=== PATIENT | female | born 1985 | race Caucasian/White ===

== ENCOUNTER 2024-02-03 15:02 | Inpatient (IN) | payer BC, SELFPAY ==
[2024-02-03 11:30] VITALS: BP 137/81
[2024-02-03 11:44] VITALS: BMI 32.1
[2024-02-03 11:48] LABS: % Basophils 0.6 % (0-2); % Eosinophils 1.3 % (0-6); % Lymphocytes 15.8 % (20.5-51.1); % Neutrophils 70.3 % (42.2-75.2); Absolute Basophils 0.1 10^3/uL (0-0.2); Absolute Eosinophils 0.2 10^3/uL (0-0.7); Absolute Immature Granulocytes 0.1 10^3/uL (0-0.05); Absolute Lymphocytes 1.8 10^3/uL (1.2-3.4); Absolute Monocytes 1.3 10^3/uL (0.1-0.6); Absolute Neutrophils 8.1 10^3/uL (1.4-6.5); Hematocrit 30.1 % (37.0-47.0); Hemoglobin 10.9 g/dL (12.0-16.0); Mean Corp Hgb Conc. 36.2 g/dL (33.0-37.0); Mean Corpuscular Hgb 38.5 pg (27.0-31.0); Mean Corpuscular Volume 106.4 fL (81.0-99.0); Mean Platelet Volume 10.8 fL (7.4-10.4); Nucleated Red Blood Cells % 0 %; Platelet Count 255 10^3/uL (130-400); Red Blood Cell Count 2.83 10^6/uL (4.20-5.40); Red Cell Dist. Width 17.6 % (11.5-14.5); White Blood Cell Count 11.6 10^3/uL (4.8-10.8)
[2024-02-03 12:16] LABS: ALT (SGPT) 42 U/L (0-35); AST (SGOT) 296 U/L (14-36); Albumin 3.9 g/dl (3.5-5.0); Alkaline Phosphatase 164 U/L (38-126); Blood Urea Nitrogen 4 mg/dl (7-17); Calcium 9.4 mg/dl (8.4-10.2); Carbon Dioxide 24 mmol/L (22-30); Chloride 95 mmol/L (98-107); Estimated Creatinine Clearance > 125 ml/min; Glucose 116 mg/dl (70-99); Lipase 75 U/L (23-300); Potassium 3.5 mmol/L (3.5-5.1); Sodium 134 mmol/L (135-145); Total Bilirubin 23.3 mg/dl (0.2-1.3); eGFR > 60.00
--- NOTE | 2024-02-03 12:58 | ED.GENMED ---
History of Present Illness
General
Chief Complaint: Skin Problem
Source: patient and spouse
Time Seen by Provider: 02/03/24 12:19
History of Present Illness
History of Present Illness:
38-year-old female with past medical history of anxiety presenting to the emergency department for evaluation of jaundice that spouse noted mildly about 1 month ago but over the last week has gotten progressively worse. Patient was attributing this
to being started on doxycycline for a lower respiratory infection that urgent care gave her about 1 week ago but this was causing GI upset so patient stopped the medication and states the GI symptoms resolved but the jaundice has only gotten worse.
She denies any abdominal pain, fevers, current nausea or vomiting, history of similar. Patient notes that she drinks at least 5-6 alcoholic beverages daily although with her recent illness she has not really drank over the last week. Occasionally
will smoke marijuana but otherwise denies any other illicit substances/IV drug abuse. No known sick contacts or recent travel. Family history was unremarkable for any GI or pancreatic cancers.
Past History
Past History
ED Past Medical History: Psychiatric
ED Past Surgical History: None
Social History
Tobacco: Non-smoker
Alcohol: Daily
Drug: Marijuana
Personal: Single
Living: with family
Employment: Employed
Review of Systems
Review of Systems
All Other Systems: ROS reviewed and negative except as documented in HPI and ROS
Phy Exam
Physical Exam
Physical Exam:
GENERAL: Alert , in no apparent distress
EYE: Icteric sclera
HEAD: NCAT
ENT: o/p clr, mmm.
CARDIAC: Regular rate and rhythm .
LUNGS: Clear breath sounds bilaterally, no acute respiratory distress, no wheezes/rales/rhonchi
ABDOMEN: Soft but distended, without focal tenderness, no r/g, no cvat, no right upper quadrant or periumbilical tenderness
NEUROLOGICAL: Alert and oriented
SKIN: Warm and dry, skin intact. Jaundiced with most of the jaundice pronounced along the face and sclera however also noted on her abdomen and chest
MUSCULOSKELETAL: No edema, well perfused.
PSYCH: Normal and appropriate interaction.
Scores
Heart Failure Risk
Heart Failure Risk Score: Not Applicable
Heart Score for Chest Pain Patients
STEMI patient?: Not applicable
Withdrawal Assessment of Alcohol
Withdrawal Assessment Completed?: Not applicable
Course
Orders/Labs/Results
Orders:
Orders
02/03/24 11:40
CMP [Comprehensive Metabolic Panel] Urgent
Complete Blood Count/With Diff Urgent
Direct Bilirubin Urgent
Comment: ADD ON
Hepatitis A Antibody, Total Urgent
Comment: ADD ON
Hepatitis B Core Ab, Total Urgent
Comment: ADD ON
Hepatitis B Surface Antibody Urgent
Comment: ADD ON
Hepatitis B Surface Antigen Urgent
Comment: ADD ON
Hepatitis C Antibody Urgent
Comment: ADD ON
Lipase Urgent
02/03/24 12:19
CT Abd/pelvis W Iv Cont Urgent
Comment:
Reason For Exam: jaundice, elevated LFT
02/03/24 12:20
Test Result ONCE
02/03/24 12:56
Alcohol Urgent
HCG, Serum Qualitative Screen Urgent
Monotest Urgent
Tylenol [Acetaminophen] Urgent
02/03/24 12:57
Add On- LAB Urgent
Tests Added?: hepatitis panel (hep A AB, Hep B AB/AG, Hep B core AB, Hep C AB)
02/03/24 14:29
Add On- LAB Routine
Tests Added?: direct bilirubin
Chest [CR Chest - 2 Views ] Routine
Comment:
Reason For Exam: eval for pna
02/03/24 14:32
Add On- LAB Urgent
Tests Added?: PT/INR/PTT
02/03/24 14:44
Blood Culture Q30M
STAN Source: Blood/Venous
Specimen Description:
Blood Culture Q30M
STAN Source: Blood/Venous
Specimen Description:
02/03/24 14:45
Hepatitis A IgM Antibody Routine
Hepatitis B Core Ab, IgM Routine
PT/INR [Prothrombin Time] Routine
PTT Routine
Comment: ADD ON
Urinalysis Routine
Date Specimen was Collected: 02/03/24
Time Specimen was Collected: 14:31
Urine Microscopic Routine
Date Specimen was Collected: 02/03/24
Time Specimen was Collected: 14:31
Urine Culture Routine
STAN Source: Urine
Specimen Description:
Obtained by: Bladder
Date Specimen was Collected: 02/03/24
Time Specimen was Collected: 14:31
02/03/24 14:48
Admit/Transfer Patient As Directed
Co-Sign Provider:
Level of Care: Inpatient admission
Assign to:: Medical/Surgical
Physician / Group: zaria
Diagnosis: alcoholic hepatitis
Reason for Hospitalization: alcoholic hepatitis
Expected length of stay greater than two midnights?: Yes
ELOS- Estimated Length of Stay in days: 2
I certify the patient meets the requirements for IP care: Yes
Code Status As Directed
Resuscitation Status: Full Code
PRN Pain Medication Management As Directed
May give lesser potent ordered pain med per pt: Yes
preference::
Protocol:: Medication orders for pain may be administered in a
manner that supports deferring to patient preference
when the pt is:
- Requesting an ordered lesser potent pain medication.
Least to most potent pain medications are defined
as: acetaminophen < NSAID < tramadol < opioids
(morphine, oxycodone, hydromorphone).
- Requesting a lesser dose of the same medication IF
ORDERED.
- Requesting a less intrusive route of administration
if both routes are prescribed by the provider (PO <
IV).
Abnormal Lab Results
02/03/24 02/03/24 02/03/24
11:40 12:56 14:45
WBC 11.6 H 10^3/uL
(4.8-10.8)
RBC 2.83 L 10^6/uL
(4.20-5.40)
Hgb 10.9 L g/dL
(12.0-16.0)
Hct 30.1 L %
(37.0-47.0)
MCV 106.4 H fL
(81.0-99.0)
MCH 38.5 H pg
(27.0-31.0)
RDW 17.6 H %
(11.5-14.5)
MPV 10.8 H fL
(7.4-10.4)
Abs Immat Gran (auto) 0.1 H 10^3/uL
(0-0.05)
Absolute Neuts (auto) 8.1 H 10^3/uL
(1.4-6.5)
Absolute Monos (auto) 1.3 H 10^3/uL
(0.1-0.6)
Immature Gran % 1.0 H %
(0-0.5)
Lymphocytes % 15.8 L %
(20.5-51.1)
Monocytes % 11.0 H %
(1.7-9.3)
PT 24.0 H Sec
(11.4-14.6)
APTT 42.4 H Sec
(23.4-35.0)
Sodium 134 L mmol/L
(135-145)
Chloride 95 L mmol/L
(98-107)
BUN 4 L mg/dl
(7-17)
Creatinine 0.5 L mg/dL
(0.6-1.0)
Glucose 116 H mg/dl
(70-99)
Total Bilirubin 23.3 H* mg/dl
(0.2-1.3)
Direct Bilirubin 18.9 H mg/dl
(0.0-0.4)
AST 296 H U/L
(14-36)
ALT 42 H U/L
(0-35)
Alkaline Phosphatase 164 H U/L
(38-126)
Urine Bilirubin 3+ A
(Negative)
Urine Urobilinogen 3+ A
(Neg - 1+)
Ur Leukocyte Esterase Trace A
(Negative)
Acetaminophen < 10 L ug/ml
(10-30)
02/03/24 11:40
02/03/24 11:40
Vital Signs
Initial and Last Documented VS:
Initial Vital Signs
Temp Pulse Resp BP Pulse Ox
98.1 F 104 16 137/81 98
02/03/24 11:30 02/03/24 11:30 02/03/24 11:30 02/03/24 11:30 02/03/24 11:30
Last Documented Vital Signs
Temp Pulse Resp BP Pulse Ox
98.1 F 94 16 111/67 95
02/03/24 11:30 02/03/24 15:00 02/03/24 15:00 02/03/24 15:00 02/03/24 14:45
MDM/Problems Addressed
Differential Diagnosis Includes:
Cirrhotic liver secondary to alcohol abuse, GI mass, less concern for cholecystitis, possibility for common bile duct stone, infectious etiology/hepatitis/mono
MDM/Problems Addressed:
38-year-old female presenting to the ER for evaluation of jaundice, significant other noticed this about 1 month ago but progressively worse over the last week. Patient with recent lower respiratory illness but had already been experiencing the
jaundice prior to this. Doubt medication reaction. Patient is a heavy drinker drinking at least 5-6 hard liquor beverages daily. Labs ordered from triage. CT of the abdomen and pelvis ordered as well as additional labs including Tylenol level,
alcohol level, monotest, beta hCG, hepatitis panel.
*Radiology
Radiology exam reviewed: radiology read reviewed
*Pulse Oximetry
Patient hypoxic: no
*Critical Care Note
Total Time (30-74mins, 75-104mins- exclusive of procedures): Not Applicable
Patient Management
Discussion with other providers: Hospitalist and [employer]
Escalation/DeEscalation of care consider admission/obs:
Patient CT findings noted for moderate to large volume ascites. Otherwise I have minimal suspicion for any gallbladder pathology given patient is here without any pain. Acute alcoholic hepatitis suspect to be the most likely diagnosis. Given her
significant lab abnormalities will admit for further evaluation. GI notified and will consult. Hospitalist team accepts for continued evaluation and treatment.
ED Attending Note
-
Portions of this chart may have been created with voice recognition software.� Occasional wrong word or��sound alike� substitutions may have occurred due to the inherent limitations of voice recognition software.
Discharge Plan
Departure
Patient Disposition: Admit
Date of Disposition: 02/03/24
Time of Disposition: 14:33
Presentation/result/management discussed w/ accepting MD/DO: Hospitalist
Discharge Problem:
Acute alcoholic hepatitis
Interventions
Interventions:
*Risk Screen - Suicide Last Done: 02/03/24 11:44
*General Assessment Last Done: 02/03/24 11:41
*Neglect/Abuse Screening Last Done: 02/03/24 11:44
ED- Fall Risk Assessment Last Done: 02/03/24 11:43
*ED COVID-19 Vaccine History Last Done: 02/03/24 11:41
ED-Skin Assessment Last Done: 02/03/24 11:44
[2024-02-03 13:31] LABS: HCG, Serum Qualitative Screen Negative
[2024-02-03 13:44] VITALS: BP 123/74
[2024-02-03 13:45] LABS: Acetaminophen < 10 ug/ml (10-30); Alcohol None Detected
[2024-02-03 14:10] VITALS: BP 118/71
[2024-02-03 14:28] LABS: Monotest Negative (Negative)
[2024-02-03 15:00] VITALS: BP 111/67
--- NOTE | 2024-02-03 15:02 | HPS.HSE ---
Family Physician
-
Family Physician: Patrick Meza
Chief Complaint
-
painless jaundice
History of Present Illness
38-year-old female past medical history of IBS/GERD, hypothyroidism, anxiety presenting for jaundice status post noted 1 month ago but has gotten worse over the past week.
A week ago patient developed cough with muscle aching and chills. She went to urgent care and was prescribed doxycycline for lower respiratory tract infection. She had vomiting as well before starting the antibiotic which she thought was from a
stomach bug that was going around her office. She took this for a few days and then developed worsening nausea and vomiting so stopped taking the doxycycline. Nausea vomiting resolved afterwards. The jaundice got worse while patient was taking
doxycycline over the past few days.
She continues to have cough. Denies shortness of breath.
She denies any abdominal pain. No diarrhea.
She drinks 5-6 alcoholic beverages daily but she has not had any alcohol to drink over the past 2 weeks. She has been drinking this much since college. She does smoke marijuana symptoms. Denies smoking or any other drugs.
She denies any recent travel history.
No family history of GI or pancreatic problems.
She used to take milk thistle.
Medical History
Past Medical History
Past Medical History: Reports Other ( IBS/GERD, hypothyroidism, anxiety)
Past Surgical History: Reports Other (LEAP procedure )
Social History
Tobacco: Non-smoker
Alcohol: Daily
Drug: Marijuana
Family History
Family History: Not pertinent
Allergies / Home Medications
Allergies reflects when Allergies were last updated in [facility].
Home Medications with original date entered in [facility]
Allergy/Medication List:
Allergies
Allergy/AdvReac Type Severity Reaction Status Date / Time
amoxicillin Allergy Unknown Verified 02/03/24 11:29
doxycycline Allergy Unknown Verified 02/03/24 11:29
Penicillins Allergy Unknown Verified 02/03/24 11:29
Home Medications
calcium carbonate (Tums) 200 mg PO DAILYPRN PRN gerd 02/03/24
clonazepam 1 mg tablet 1 mg PO BID 02/03/24
levothyroxine 50 mcg tablet 50 mcg PO DAILY 02/03/24
Review of Systems
-
History Source: Patient
A 12 point ROS was completed and negative except as noted: Yes
Constitutional: Reports No Symptoms
EENT: Reports No Symptoms
Respiratory: Reports See HPI
Cardiac: Reports No Symptoms
Abdomen/GI: Reports See HPI
: Reports No Symptoms
Musculoskeletal: Reports No Symptoms
Skin: Reports No Symptoms
Neurological: Reports No Symptoms
Endocrine: Reports No Symptoms
Hematologic/Lymphatic: Reports No Symptoms
Psych: Reports No Symptoms
Physical Exam
Vital Signs
Vital Signs
Temp Pulse Resp BP Pulse Ox
98.1 F 102 19 123/74 96
02/03/24 11:30 02/03/24 14:10 02/03/24 14:10 02/03/24 13:44 02/03/24 14:10
Physical Exam
General: Well Developed, Well Nourished and No Apparent Distress
HEENT: NormoCephalic, Moist mucous membranes, Atraumatic and Other (jaundice)
Respiratory: Clear
Cardiac: S1/S2 and Regular Rhythm; No Murmur or Rub
GI: Soft, Non Tender, Non Distended and Normal Bowel Sounds; No Organomegaly
Rectal: Deferred by Provider
Musculoskeletal: No Clubbing, No Cyanosis and No Edema
Skin: No Rash
Neuro: Nonfocal/grossly intact
Laboratory Results
-
02/03/24 11:40
02/03/24 11:40
Laboratory Results
Total Bilirubin 23.3 mg/dl (0.2-1.3) H* 02/03/24 11:40
AST 296 U/L (14-36) H 02/03/24 11:40
ALT 42 U/L (0-35) H 02/03/24 11:40
Alkaline Phosphatase 164 U/L (38-126) H 02/03/24 11:40
Lipase Cancelled 02/03/24 12:19
Data Reviewed
-
Lab Data: Labs Reviewed by me
Old Records: Reviewed
Impression/Plan
-
IMPRESSION:
PLAN:
# Painless jaundice/transaminitis likely secondary to acute alcoholic hepatitis with ascites
-CT abdomen pelvis shows enlarged minimally diffusely heterogeneous liver, cannot exclude minimal gallbladder density such as sludge/tiny stone/mild gallbladder wall thickening, no biliary tract dilatation, small volume ascites
-Blood cultures pending
-Urinalysis pending
-Hepatitis serologies pending
-PT/INR pending
-Likely will require steroids
-IR consulted for paracentesis
-Counseled on alcohol cessation
-GI consulted
# History of alcohol use disorder
-She did not drink alcohol in 1 to 2 weeks
# Recent upper respiratory infection likely acute bronchitis
-continue to have cough
-Chest x-ray pending
-Only completed few days of doxycycline
IBS/GERD
Anxiety
-Continue clonazepam
Hypothyroidism
-Continue levothyroxine
Chronic anemia
-Hemoglobin 10.9, no baseline
Full code
DVT prophylaxis�heparin
Regular diet
[2024-02-03 15:08] LABS: Direct Bilirubin 18.9 mg/dl (0.0-0.4)
[2024-02-03 15:17] LABS: INR 2.13
[2024-02-03 15:18] LABS: APTT 42.4 Sec (23.4-35.0)
[2024-02-03 15:26] LABS: Urine Albumin Trace (Neg - Trace); Urine Bilirubin 3+ (Negative); Urine Character Clear (Clear); Urine Color Amber; Urine Glucose Negative (Negative); Urine Ketone Negative (Negative); Urine Leukocyte Trace (Negative); Urine Nitrite Negative (Negative); Urine Occult Blood Negative (Negative); Urine Urobilinogen 3+ (Neg - 1+); Urine pH 6.5 (5.0-9.0)
[2024-02-03 16:05] VITALS: BP 119/72
[2024-02-03 16:07] LABS: Urine Bacteria Few (Negative); Urine Red Blood Cell 0-2 /HPF (0-2); Urine White Cell 26-30 /HPF (0-5)
[2024-02-03 16:08] VITALS: BMI 30.2
--- NOTE | 2024-02-03 16:45 | PTCARENOTE ---
Received patient from ED via stretcher. Pt AAOX3. Pox: 97% RA. Patient denies pain/SOB. Call stevenson within reach. Family at bedside. Plan of care ongoing.
--- NOTE | 2024-02-03 17:23 | CON.GI ---
Consultation
-
Date/Time Consultation Requested: 02/03/2024, 3pm
Date/Time Consultation Performed: 02/03/2024, 5pm
Requesting Provider: Dr. Weiss
Performing Provider: Dr. Clinton
Reason for Consultation: abormal LFTs
Medical History
Chief Complaint / HPI
Chief Complaint: jaundice
History of Present Illness:
38-year-old female no significant past medical history presenting with jaundice. She has been noticing intermittent jaundice for the last month. Tano� is at bedside and helps with history. Last week on Sunday she had a fever and she went to
urgent care for cough which had started 2 days prior. COVID/flu negative then. They placed on doxycycline. She felt the doxycycline was causing nausea and vomiting and she stopped it at some point. They told her at urgent care she had a lower
respiratory tract infection. She is also noted intermittent abdominal distention on and off for the last few weeks. However, she did states she thought she had a GI bug. She drinks about 5-6 drinks a day for years but did quit drinking about 2
weeks ago due to 1 of these GI illnesses.
She has no history of withdrawal symptoms or seizures, hospitalizations related to alcohol.
In the ER, she was noted to have a bilirubin of 23.3, direct bilirubin 18.9, AST 296, ALT 42, white blood cell count 11.6, I had asked for INR which was checked and was 2.13. CT abdomen and pelvis showed diffuse heterogeneous liver, normal
pancreas, small to moderate amount of ascites. Chest x-ray which I ordered showed no pneumonia.
Past Medical History
Past Medical History: Hypothyroidism and Other (anxiety)
Past Surgical History: Other (leep, wisdom teeth)
Social History
Tobacco: Former Smoker
Alcohol: Chronic Alcoholic
Drug: Marijuana
Personal: Other (engaged)
Family History
Family History: Reviewed & Not Pertinent
Allergies / Home Medications
Allergy/AdvReac Type Severity Reaction Status Date / Time
amoxicillin Allergy Unknown Verified 02/03/24 11:29
doxycycline Allergy Unknown Verified 02/03/24 11:29
Penicillins Allergy Unknown Verified 02/03/24 11:29
�Medication �Instructions �Recorded
calcium carbonate (Tums) 200 mg PO DAILYPRN PRN gerd 02/03/24
clonazepam 1 mg tablet 1 mg PO BID 02/03/24
levothyroxine 50 mcg tablet 50 mcg PO DAILY 02/03/24
Review of Systems
-
All other systems: A 12 pt ROS was Negative except as stated above in HPI
Vital Signs
Temp Pulse Resp BP Pulse Ox
98.5 F 86 17 119/72 97
02/03/24 16:05 02/03/24 16:05 02/03/24 16:05 02/03/24 16:05 02/03/24 16:55
Physical Exam
Exam
General: Other (jaundiced)
HEENT: Other (jaundiced)
Respiratory: Clear
Cardiac: S1/S2
GI: Non Tender and Distended
Musculoskeletal: No Clubbing
Skin: Warm
Neuro: AO x 3
Hematologic/Lymphatic: No Lymphadenopathy
Psych: Calm
Results
WBC 11.6 10^3/uL (4.8-10.8) H 02/03/24 11:40
Hgb 10.9 g/dL (12.0-16.0) L 02/03/24 11:40
Hct 30.1 % (37.0-47.0) L 02/03/24 11:40
MCV 106.4 fL (81.0-99.0) H 02/03/24 11:40
Plt Count 255 10^3/uL (130-400) 02/03/24 11:40
Absolute Neuts (auto) 8.1 10^3/uL (1.4-6.5) H 02/03/24 11:40
PT 24.0 Sec (11.4-14.6) H 02/03/24 14:45
INR 2.13 02/03/24 14:45
APTT 42.4 Sec (23.4-35.0) H 02/03/24 14:45
Sodium 134 mmol/L (135-145) L 02/03/24 11:40
Potassium 3.5 mmol/L (3.5-5.1) 02/03/24 11:40
Chloride 95 mmol/L (98-107) L 02/03/24 11:40
Carbon Dioxide 24 mmol/L (22-30) 02/03/24 11:40
BUN 4 mg/dl (7-17) L 02/03/24 11:40
Creatinine 0.5 mg/dL (0.6-1.0) L 02/03/24 11:40
Calcium 9.4 mg/dl (8.4-10.2) 02/03/24 11:40
Total Bilirubin 23.3 mg/dl (0.2-1.3) H* 02/03/24 11:40
AST 296 U/L (14-36) H 02/03/24 11:40
ALT 42 U/L (0-35) H 02/03/24 11:40
Alkaline Phosphatase 164 U/L (38-126) H 02/03/24 11:40
Lipase Cancelled 02/03/24 12:19
Diagnostic Image Results:
Prior GI Procedures:
EGD:
Colonoscopy:
Assessment / Plan
-
This is a 38-year-old female no significant past medical history presenting with elevated liver enzymes and INR consistent with acute alcoholic hepatitis (high bili, high coags, AST:ALT >2:1, elevated WBC). Discriminant function today is 74, MELD
is 28.
First and foremost we need to rule out infection. Chest x-ray was done as above, I will reorder a COVID and flu swab as she does have a cough. However, she does state her cough was better than it was last week. Her last fever was 1 week ago as
well. Paracentesis has been ordered for tomorrow. Blood culture, UA, urine culture also done in the emergency room.
I discussed with the patient at length about acute alcoholic hepatitis, prognosis. We counseled about the importance of complete cessation of alcohol which the patient plans to do. We did discuss the role of steroids however we discussed the
importance of ensuring there is no infection first. Recommend daily CBC, BMP, liver CHEM profile, INR.
The role of N-acetylcysteine in acute alcoholic hepatitis is controversial if it is helpful. However, given the fact that she has severe acute alcoholic hepatitis with such a high discriminant function, I think it is reasonable to start and I have
placed the order.
-
-
Thank you for consultation and allowing me to participate in the patient's care. Please call the economic development manager GI physician during the after hours with any questions or concerns.
[2024-02-03] MEDS: ACETADOTE 265.5 MG IV (17:50)
[2024-02-03 18:14] LABS: COVID-19 Antigen Negative (Negative)
[2024-02-03] MEDS: ACETADOTE 521.8 MG IV (19:24)
[2024-02-03] MEDS: TUMS CHEWABLE TABLET 200 MG PO (21:06)
[2024-02-03] MEDS: KLONOPIN 1 MG PO (21:06)
[2024-02-03] MEDS: HEPARIN 5000 UNITS SC (21:06)
[2024-02-03 23:28] VITALS: BP 118/60
[2024-02-03] MEDS: ACETADOTE 1080.35 MG IV (23:49)
[2024-02-03] MEDS: ACETADOTE 1080.35 MEQ IV (23:49)
--- NOTE | 2024-02-04 06:38 | W.PN.GI.CBS2 ---
Today's Communication / Plan
-
Please see assessment and plan for details.
Assessment / Plan
-
1. Elevated LFTs : In a pattern consistent with severe acute alcoholic hepatitis. There are no signs of encephalopathy or acute liver failure though INR is mildly elevated. Her last drink was 2 weeks ago and she is committed to no further alcohol
by her report. At this point will await labs this morning, as well as diagnostic paracentesis. Pending these will likely start prednisolone today. If labs continue to worsen or signs of acute liver failure we will discuss with transplant center.
Will await viral hep otology's and continue to trend labs. Will finish course of N-acetylcysteine.
Subjective
Subjective
Date of Service: February 04, 2024
Patient feeling okay, still some mild cough that precipitated 1 episode of vomiting otherwise denies any abdominal pain, fever or chills.
Objective
Data Reviewed
Laboratory Data:
Laboratory Results
PT 24.0 Sec (11.4-14.6) H 02/03/24 14:45
INR 2.13 02/03/24 14:45
APTT 42.4 Sec (23.4-35.0) H 02/03/24 14:45
Total Bilirubin 23.3 mg/dl (0.2-1.3) H* 02/03/24 11:40
AST 296 U/L (14-36) H 02/03/24 11:40
ALT 42 U/L (0-35) H 02/03/24 11:40
Alkaline Phosphatase 164 U/L (38-126) H 02/03/24 11:40
Lipase Cancelled 02/03/24 12:19
Vital Signs and I&O:
Vital Signs
Temp Pulse Resp BP Pulse Ox
98.8 F 97 18 118/60 95
02/03/24 23:28 02/03/24 23:28 02/03/24 23:28 02/03/24 23:28 02/03/24 23:28
I&O
02/02/24 02/03/24 02/04/24
06:59 06:59 06:59
Intake Total 1076.8 / 1076.8
Balance 1076.8 / 1076.8
Physical Exam
Physical Exam
General: NAD, icteric
Abdomen: normal bowel sounds, soft, no tenderness, palpable hepatomegaly though otherwise no masses or bruits, probable mild ascites
[2024-02-04 07:52] LABS: PT 24.5 Sec (11.4-14.6)
[2024-02-04] MEDS: SYNTHROID 50 MCG PO (07:52)
[2024-02-04] MEDS: KLONOPIN 1 MG PO ×2 (07:52→22:19)
[2024-02-04] MEDS: HEPARIN 5000 UNITS SC ×2 (07:52→22:19)
[2024-02-04 07:53] VITALS: BP 112/66
[2024-02-04 07:54] LABS: % Basophils 0.6 % (0-2); % Eosinophils 0.9 % (0-6); % Immature Granulocytes 1.3 % (0-0.5); % Lymphocytes 14.6 % (20.5-51.1); % Monocytes 12.5 % (1.7-9.3); % Neutrophils 70.1 % (42.2-75.2); Absolute Basophils 0.1 10^3/uL (0-0.2); Absolute Eosinophils 0.1 10^3/uL (0-0.7); Absolute Immature Granulocytes 0.1 10^3/uL (0-0.05); Absolute Lymphocytes 1.3 10^3/uL (1.2-3.4); Absolute Monocytes 1.1 10^3/uL (0.1-0.6); Absolute Neutrophils 6.1 10^3/uL (1.4-6.5); Hematocrit 29.2 % (37.0-47.0); Hemoglobin 10.1 g/dL (12.0-16.0); Mean Corp Hgb Conc. 34.6 g/dL (33.0-37.0); Mean Platelet Volume 10.8 fL (7.4-10.4); Nucleated Red Blood Cells % 0 %; Platelet Count 251 10^3/uL (130-400); Red Blood Cell Count 2.73 10^6/uL (4.20-5.40); Red Cell Dist. Width 17.2 % (11.5-14.5); White Blood Cell Count 8.8 10^3/uL (4.8-10.8)
[2024-02-04 08:23] VITALS: BP 122/71; BP_SYST 99
[2024-02-04 08:47] LABS: ALT (SGPT) 37 U/L (0-35); AST (SGOT) 207 U/L (14-36); Albumin 3.4 g/dl (3.5-5.0); Alkaline Phosphatase 124 U/L (38-126); Blood Urea Nitrogen 6 mg/dl (7-17); Carbon Dioxide 27 mmol/L (22-30); Chloride 95 mmol/L (98-107); Direct Bilirubin 20.1 mg/dl (0.0-0.4); Estimated Creatinine Clearance > 125 ml/min; Glucose 90 mg/dl (70-99); Sodium 137 mmol/L (135-145); Total Bilirubin 23.8 mg/dl (0.2-1.3); Total Protein 6.5 g/dl (6.3-8.2); eGFR > 60.00
[2024-02-04 09:04] VITALS: BP 112/71
[2024-02-04] MEDS: KCL ELIXIR 40 MEQ PO ×2 (09:44→12:07)
[2024-02-04 12:12] LABS: Body Fluid Albumin 1.8 g/dl; Body Fluid Amylase < 30 U/L; Body Fluid LDH 92 U/L; Body Fluid Protein 3.7 g/dl
[2024-02-04 13:01] LABS: Body Fluid Mononuclear 75.9 %; Body Fluid Polymorphonuclear 24.1 %; Body Fluid WBC 420 /CUMM
[2024-02-04 13:36] LABS: Body Fluid Second Tech AMA
--- NOTE | 2024-02-04 14:57 | W.PN.UPDATE ---
Update Note
Progress Note Update
Paracentesis reviewed, no evidence of SBP, SAAG consistent with portal hypertension, no fever or other signs of infection. Will start prednisolone today.
--- NOTE | 2024-02-04 15:13 | W.PN.HOSP.TC ---
Today's Communication/Plan
-
prednisolone
monitor LFTs
Assessment / Plan
Assessment / Plan
Physical Exam
General: Well Developed, Well Nourished and No Apparent Distress
HEENT: NormoCephalic, Moist mucous membranes, Atraumatic and Other (jaundice)
Respiratory: Clear
Cardiac: S1/S2 and Regular Rhythm; No Murmur or Rub
GI: Soft, Non Tender, Non Distended and Normal Bowel Sounds; No Organomegaly
Rectal: Deferred by Provider
Musculoskeletal: No Clubbing, No Cyanosis and No Edema
Skin: No Rash
Neuro: Nonfocal/grossly intact
PLAN:
# Painless jaundice
#transaminitis
#acute alcoholic hepatitis
#ascites
-No evidence of SBP on Paracentesis 02/03
-Start prednisolone
-CT abdomen pelvis shows enlarged minimally diffusely heterogeneous liver, cannot exclude minimal gallbladder density such as sludge/tiny stone/mild gallbladder wall thickening, no biliary tract dilatation, small volume ascites
-Blood cultures pending
-Hepatitis serologies pending
-Counseled on alcohol cessation
-GI on board
#Pleural effusion
-2/2 to ascites
-ctm
-no resp issues - monitor cough s/p para
# History of alcohol use disorder
-She did not drink alcohol in 1 to 2 weeks
# Recent upper respiratory infection likely acute bronchitis
--monitor resp status after para
#hypokalemia
-monitor and replete
IBS/GERD
Anxiety
-Continue clonazepam
Hypothyroidism
-Continue levothyroxine
Chronic anemia
-Hemoglobin 10.9, no baseline
Full code
DVT prophylaxis�heparin
Regular diet
Total time spent on today's encounter was 51 minutes which included time spent in counseling the patient/family regarding diagnosis and treatment plan as listed above, goals of care, and symptom management. Case was discussed with nursing staff,
specialists, and care coordinators/case management. All labs and imaging personally reviewed by me. Remainder the time spent in detailed review of previous records, lab data, imaging, and other medical provider documentation.
Anticipated Discharge: 24 - 48 hours
Subjective/Interval History
-
Date of Service: February 04, 2024
no acute events
Objective Data
-
Labs:
Laboratory Results
02/04/24 02/04/24
07:03 07:04
WBC 8.8
Hgb 10.1 L
Hct 29.2 L
Plt Count 251
PT 24.5 H
INR 2.20
Sodium 137
Potassium 3.0 L
Chloride 95 L
Carbon Dioxide 27
BUN 6 L
Creatinine 0.4 L
Glucose 90
Calcium 9.0
Total Bilirubin 23.8 H*
AST 207 H
ALT 37 H
Alkaline Phosphatase 124
Vital Signs:
Vital Signs
Temp Pulse Resp BP Pulse Ox
98.1 F 100 16 112/71 95
02/04/24 08:23 02/04/24 09:04 02/04/24 09:04 02/04/24 09:04 02/04/24 08:23
I&O
02/03/24 02/04/24 02/05/24
06:59 06:59 06:59
Intake Total 1076.8 / 1076.8
Balance 1076.8 / 1076.8
Review of Systems
-
History Source: Patient
All other systems: Not reviewed unless documented
Data Reviewed
-
Diagnostic Radiology: Image personally visualized and interpreted and Report Reviewed by me
CT Scan: Image personally visualized and interpreted and Report Reviewed by me
Labs: Labs Reviewed by me
[2024-02-04 15:20] VITALS: BP 112/65
[2024-02-04 15:27] LABS: Hepatitis B Surface Antigen Negative (Negative)
[2024-02-04] MEDS: PRELONE 40 MG PO (15:37)
[2024-02-04 15:45] LABS: Hepatitis B Core Ab, Total Negative (Negative)
--- NOTE | 2024-02-04 15:47 | CM ---
customer engagement manager reviewed patient's chart and met with patient and spouse at bedside, patient lives with spouse and brother in a split level home, patient is independent with adl's and ambulation, no dme, patient drives, plan is to home when stable, no
needs.
PCP: Dr. Meza
Pharmacy: [facility]
Plan; Home when stable.
[2024-02-04 17:30] LABS: Hepatitis B Surface Antibody Indeterminate
[2024-02-04 18:22] LABS: Hepatitis A Antibody, Total Positive (Negative); Hepatitis C Antibody Negative (Negative)
[2024-02-04 19:15] LABS: Hepatitis A IgM Antibody Negative (Negative)
[2024-02-04] MEDS: TUMS CHEWABLE TABLET 200 MG PO (23:06)
[2024-02-04 23:20] VITALS: BP 110/60
[2024-02-05] MEDS: ACETADOTE 1080.35 MG IV (02:58)
[2024-02-05] MEDS: ACETADOTE 1080.35 MEQ IV (02:58)
[2024-02-05 07:06] VITALS: BP 110/70
[2024-02-05 08:11] LABS: INR 2.24; PT 24.9 Sec (11.4-14.6)
[2024-02-05 08:13] LABS: % Basophils 0.1 % (0-2); % Lymphocytes 13.3 % (20.5-51.1); % Monocytes 11.5 % (1.7-9.3); % Neutrophils 74.1 % (42.2-75.2); Absolute Immature Granulocytes 0.1 10^3/uL (0-0.05); Absolute Lymphocytes 1.1 10^3/uL (1.2-3.4); Absolute Monocytes 0.9 10^3/uL (0.1-0.6); Absolute Neutrophils 5.9 10^3/uL (1.4-6.5); Hematocrit 28.2 % (37.0-47.0); Hemoglobin 9.4 g/dL (12.0-16.0); Mean Corp Hgb Conc. 33.3 g/dL (33.0-37.0); Mean Corpuscular Hgb 37.3 pg (27.0-31.0); Mean Corpuscular Volume 111.9 fL (81.0-99.0); Mean Platelet Volume 10.9 fL (7.4-10.4); Nucleated Red Blood Cells % 0 %; Platelet Count 234 10^3/uL (130-400); Red Blood Cell Count 2.52 10^6/uL (4.20-5.40); Red Cell Dist. Width 18.1 % (11.5-14.5)
[2024-02-05] MEDS: SYNTHROID 50 MCG PO (08:24)
[2024-02-05] MEDS: HEPARIN 5000 UNITS SC ×2 (08:24→20:36)
[2024-02-05] MEDS: KLONOPIN 1 MG PO ×2 (08:24→20:36)
[2024-02-05] MEDS: PRELONE 40 MG PO (08:25)
--- NOTE | 2024-02-05 08:31 | W.PN.GI.CBS2 ---
Today's Communication / Plan
-
Please see assessment and plan for details.
Assessment / Plan
-
1. Elevated LFTs : In a pattern consistent with severe acute alcoholic hepatitis. There are no signs of encephalopathy though INR is mildly elevated. Her last drink was 2 weeks ago and she is committed to no further alcohol by her report.
Paracentesis consistent with portal hypertension, no suggestion of SBP, now on day 2 of prednisolone. If labs continue to worsen or signs of acute liver failure we will discuss with transplant center. Viral serologies negative, will continue to
trend labs. Will finish course of N-acetylcysteine.
Subjective
Subjective
Date of Service: February 05, 2024
Patient feeling okay, no new complaints. No abdominal pain, nausea, vomiting, fever or chills.
Objective
Data Reviewed
Laboratory Data:
Laboratory Results
02/05/24 07:35
Laboratory Results
PT 24.9 Sec (11.4-14.6) H 02/05/24 07:35
INR 2.24 02/05/24 07:35
APTT 42.4 Sec (23.4-35.0) H 02/03/24 14:45
Total Bilirubin 23.8 mg/dl (0.2-1.3) H* 02/04/24 07:03
AST 207 U/L (14-36) H 02/04/24 07:03
ALT 37 U/L (0-35) H 02/04/24 07:03
Alkaline Phosphatase 124 U/L (38-126) 02/04/24 07:03
Lipase Cancelled 02/03/24 12:19
Vital Signs and I&O:
Vital Signs
Temp Pulse Resp BP Pulse Ox
98.2 F 103 18 110/70 95
02/05/24 07:06 02/05/24 07:06 02/05/24 07:06 02/05/24 07:06 02/05/24 07:06
I&O
02/04/24 02/05/24 02/06/24
06:59 06:59 06:59
Intake Total 1076.8 / 1076.8 1440 / 1440 780 / 780
Balance 1076.8 / 1076.8 1440 / 1440 780 / 780
Physical Exam
Physical Exam
General: NAD, jaundice
Abdomen: normal bowel sounds, soft, no tenderness, no masses or bruits, no ascites
[2024-02-05 08:44] LABS: ALT (SGPT) 39 U/L (0-35); AST (SGOT) 210 U/L (14-36); Albumin 3.3 g/dl (3.5-5.0); Alkaline Phosphatase 123 U/L (38-126); Blood Urea Nitrogen 6 mg/dl (7-17); Calcium 9.4 mg/dl (8.4-10.2); Carbon Dioxide 24 mmol/L (22-30); Chloride 99 mmol/L (98-107); Direct Bilirubin 17.7 mg/dl (0.0-0.4); Estimated Creatinine Clearance > 125 ml/min; Glucose 114 mg/dl (70-99); Potassium 3.5 mmol/L (3.5-5.1); Sodium 136 mmol/L (135-145); Total Bilirubin 20.6 mg/dl (0.2-1.3); Total Protein 6.3 g/dl (6.3-8.2); eGFR > 60.00
--- NOTE | 2024-02-05 14:14 | CM ---
Chart reviewed and plan is to home when stable.
Plan; Home when stable.
--- NOTE | 2024-02-05 14:19 | W.PN.HOSP.TC ---
Today's Communication/Plan
-
prednisolone
monitor LFTs
Assessment / Plan
Assessment / Plan
Physical Exam
General: Well Developed, Well Nourished and No Apparent Distress
HEENT: NormoCephalic, Moist mucous membranes, Atraumatic and Other (jaundice)
Respiratory: Clear
Cardiac: S1/S2 and Regular Rhythm; No Murmur or Rub
GI: Soft, Non Tender, Non Distended and Normal Bowel Sounds; No Organomegaly
Rectal: Deferred by Provider
Musculoskeletal: No Clubbing, No Cyanosis and No Edema
Skin: No Rash
Neuro: Nonfocal/grossly intact
PLAN:
# Painless jaundice
#transaminitis
#acute alcoholic hepatitis
#ascites
-No evidence of SBP on Paracentesis /
-Paracentesis consistent with portal hypertension
-Start prednisolone (D2)
-CT abdomen pelvis shows enlarged minimally diffusely heterogeneous liver, cannot exclude minimal gallbladder density such as sludge/tiny stone/mild gallbladder wall thickening, no biliary tract dilatation, small volume ascites
-Blood cultures pending
-Hepatitis serologies negative
-S/p NAC
-Counseled on alcohol cessation
-GI on board
#Pleural effusion
-2/2 to ascites
-ctm
-no resp issues - monitor cough s/p para
# History of alcohol use disorder
-She did not drink alcohol in 1 to 2 weeks
# Recent upper respiratory infection likely acute bronchitis
--monitor resp status after para
-stable
#hypokalemia
-monitor and replete
IBS/GERD
Anxiety
-Continue clonazepam
Hypothyroidism
-Continue levothyroxine
Chronic anemia
-Hemoglobin 10.9, no baseline
Full code
DVT prophylaxis�heparin
Regular diet
Total time spent on today's encounter was 52 minutes which included time spent in counseling the patient/family regarding diagnosis and treatment plan as listed above, goals of care, and symptom management. Case was discussed with nursing staff,
specialists, and care coordinators/case management. All labs and imaging personally reviewed by me. Remainder the time spent in detailed review of previous records, lab data, imaging, and other medical provider documentation.
Anticipated Discharge: Within 24 hours
Subjective/Interval History
-
Date of Service: February 05, 2024
no acute events
Objective Data
-
Labs:
Laboratory Results
02/05/24
07:35
WBC 8.0
Hgb 9.4 L
Hct 28.2 L
Plt Count 234
PT 24.9 H
INR 2.24
Sodium 136
Potassium 3.5
Chloride 99
Carbon Dioxide 24
BUN 6 L
Creatinine 0.4 L
Glucose 114 H
Calcium 9.4
Total Bilirubin 20.6 H*
AST 210 H
ALT 39 H
Alkaline Phosphatase 123
Vital Signs:
Vital Signs
Temp Pulse Resp BP Pulse Ox
98.2 F 103 18 110/70 95
02/05/24 07:06 02/05/24 07:06 02/05/24 07:06 02/05/24 07:06 02/05/24 07:06
I&O
02/04/24 02/05/24 02/06/24
06:59 06:59 06:59
Intake Total 1076.8 / 1076.8 1440 / 1440 780 / 780
Balance 1076.8 / 1076.8 1440 / 1440 780 / 780
Review of Systems
-
History Source: Patient
All other systems: Not reviewed unless documented
Data Reviewed
-
Diagnostic Radiology: Image personally visualized and interpreted and Report Reviewed by me
CT Scan: Image personally visualized and interpreted and Report Reviewed by me
Labs: Labs Reviewed by me
[2024-02-05 15:12] VITALS: BP 141/75
[2024-02-05 23:25] VITALS: BP 127/73
[2024-02-06] MEDS: ACETADOTE 1080.35 MG IV (02:35)
[2024-02-06] MEDS: ACETADOTE 1080.35 MEQ IV (02:35)
[2024-02-06 07:37] VITALS: BP 106/67
[2024-02-06] MEDS: KLONOPIN 1 MG PO (07:50)
[2024-02-06] MEDS: PRELONE 40 MG PO (07:50)
[2024-02-06 07:51] LABS: Hematocrit 24.5 % (37.0-47.0); Hemoglobin 8.8 g/dL (12.0-16.0); Mean Corp Hgb Conc. 35.9 g/dL (33.0-37.0); Mean Corpuscular Hgb 38.3 pg (27.0-31.0); Mean Corpuscular Volume 106.5 fL (81.0-99.0); Mean Platelet Volume 11.3 fL (7.4-10.4); Platelet Count 257 10^3/uL (130-400); Red Cell Dist. Width 18.6 % (11.5-14.5); White Blood Cell Count 10.1 10^3/uL (4.8-10.8)
[2024-02-06] MEDS: HEPARIN 5000 UNITS SC (07:51)
[2024-02-06] MEDS: SYNTHROID 50 MCG PO (07:51)
[2024-02-06 07:57] LABS: PT 25.8 Sec (11.4-14.6)
[2024-02-06 08:19] LABS: ALT (SGPT) 52 U/L (0-35); AST (SGOT) 297 U/L (14-36); Alkaline Phosphatase 135 U/L (38-126); Direct Bilirubin 14.8 mg/dl (0.0-0.4); Total Bilirubin 17.6 mg/dl (0.2-1.3); Total Protein 5.8 g/dl (6.3-8.2)
--- NOTE | 2024-02-06 08:58 | W.PN.GI.CBS2 ---
Today's Communication / Plan
-
Please see assessment and plan for details.
Assessment / Plan
-
1. Elevated LFTs : In a pattern consistent with severe acute alcoholic hepatitis. There are no signs of encephalopathy though INR is mildly elevated. Her last drink was 2 weeks ago and she is committed to no further alcohol by her report.
Paracentesis consistent with portal hypertension, no suggestion of SBP, now on day 3 of prednisolone. Her bilirubin has significantly improved, though INR is minimally higher. She is okay to DC from GI standpoint on prednisolone 40 mg daily to
complete 28 days and then taper over 2 weeks. We will repeat labs in 2 weeks, 4 weeks and follow-up in the office in 1 month.
We will sign off for now, please call back with any further questions.
Subjective
Subjective
Date of Service: February 06, 2024
Patient feeling much better, no significant symptoms, no abdominal pain, nausea or vomiting.
Objective
Data Reviewed
Laboratory Data:
Laboratory Results
02/06/24 06:35
02/05/24 07:35
Laboratory Results
PT 25.8 Sec (11.4-14.6) H 02/06/24 06:35
INR 2.30 02/06/24 06:35
APTT 42.4 Sec (23.4-35.0) H 02/03/24 14:45
Total Bilirubin 17.6 mg/dl (0.2-1.3) H 02/06/24 06:35
AST 297 U/L (14-36) H 02/06/24 06:35
ALT 52 U/L (0-35) H 02/06/24 06:35
Alkaline Phosphatase 135 U/L (38-126) H 02/06/24 06:35
Lipase Cancelled 02/03/24 12:19
Vital Signs and I&O:
Vital Signs
Temp Pulse Resp BP Pulse Ox
97.9 F 97 16 106/67 93
02/06/24 07:37 02/06/24 07:37 02/06/24 07:37 02/06/24 07:37 02/06/24 07:37
I&O
02/05/24 02/06/24 02/07/24
06:59 06:59 06:59
Intake Total 1440 / 1440 2520 / 2520
Balance 1440 / 1440 2520 / 2520
Physical Exam
Physical Exam
General: NAD, icteric
Abdomen: normal bowel sounds, soft, no tenderness, no masses or bruits, no ascites
--- NOTE | 2024-02-06 09:16 | W.PN.UPDATE ---
Update Note
Progress Note Update
message sent to office to arrrange 4 week follow up. Labs slips left for 2 weeks and 4 week check.
[2024-02-06 09:30] LABS: Folate 4.4 ng/ml (2.76-20); Vitamin B12 283 pg/ml (239-931)
--- NOTE | 2024-02-06 12:48 | CM ---
Home today no needs.
Plan; Home no needs.
--- NOTE | 2024-02-06 13:13 | W.PN.HOSP.TC ---
Addendum entered and electronically signed by Fuentes Díaz MD 02/07/24 16:09:
[id number]
Original Note:
Today's Communication/Plan
-
prednisolone 40 mg daily to complete 28 days and then taper over 2 weeks.
labs in 2 weeks, 4 weeks and follow-up in the GI office in 1 month.
Assessment / Plan
Assessment / Plan
Physical Exam
General: Well Developed, Well Nourished and No Apparent Distress
HEENT: NormoCephalic, Moist mucous membranes, Atraumatic and Other (jaundice)
Respiratory: Clear
Cardiac: S1/S2 and Regular Rhythm; No Murmur or Rub
GI: Soft, Non Tender, Non Distended and Normal Bowel Sounds; No Organomegaly
Rectal: Deferred by Provider
Musculoskeletal: No Clubbing, No Cyanosis and No Edema
Skin: No Rash
Neuro: Nonfocal/grossly intact
PLAN:
# Painless jaundice
#transaminitis
#acute alcoholic hepatitis
#ascites
-No evidence of SBP on Paracentesis 02/03
-LFTs improving
-Paracentesis consistent with portal hypertension
-prednisolone (D3) - complete 28 day course
-CT abdomen pelvis shows enlarged minimally diffusely heterogeneous liver, cannot exclude minimal gallbladder density such as sludge/tiny stone/mild gallbladder wall thickening, no biliary tract dilatation, small volume ascites
-Hepatitis serologies negative
-S/p NAC
-Counseled on alcohol cessation - pt agreeable
-GI on board
- labs in 2 weeks, 4 weeks and follow-up in the office in 1 month.
-f/u gi outpatient
#Anemia, chronic
#Dilutional Anemia
-no evidence of blood loss, stool brown
-f/u outpatient cbc
#Pleural effusion
-2/2 to ascites
-ctm
-no resp issues - monitor cough s/p para
# History of alcohol use disorder
-She did not drink alcohol in 1 to 2 weeks
# Recent upper respiratory infection likely acute bronchitis
--monitor resp status after para
-stable
#hypokalemia
-monitor and replete
IBS/GERD
Anxiety
-Continue clonazepam
Hypothyroidism
-Continue levothyroxine
Full code
DVT prophylaxis�heparin
Regular diet
More than 30 minutes spent in discharge including
Final examination of the patient
Summarizing hospital stay
Instructions for continuing care to all relevant caregivers
Preparation of discharge records, prescriptions, and referral forms
Total time spent (38 in minutes):
Anticipated Discharge: Today
Subjective/Interval History
-
Date of Service: February 06, 2024
No acute events
Objective Data
-
Labs:
Laboratory Results
02/06/24
06:35
WBC 10.1
Hgb 8.8 L
Hct 24.5 L
Plt Count 257
PT 25.8 H
INR 2.30
Total Bilirubin 17.6 H
AST 297 H
ALT 52 H
Alkaline Phosphatase 135 H
Vital Signs:
Vital Signs
Temp Pulse Resp BP Pulse Ox
97.9 F 97 16 106/67 93
02/06/24 07:37 02/06/24 07:37 02/06/24 07:37 02/06/24 07:37 02/06/24 07:37
I&O
02/05/24 02/06/24 02/07/24
06:59 06:59 06:59
Intake Total 1440 / 1440 2520 / 2520
Balance 1440 / 1440 2520 / 2520
Review of Systems
-
History Source: Patient
All other systems: Not reviewed unless documented
Data Reviewed
-
Diagnostic Radiology: Image personally visualized and interpreted and Report Reviewed by me
CT Scan: Image personally visualized and interpreted and Report Reviewed by me
Labs: Labs Reviewed by me
--- NOTE | 2024-02-06 13:17 | W.DS.TRANS ---
DC Summary - Outside Plant Technician
-
Discharge Instructions:
Discharge Diagnosis/Procedures # Painless jaundice
#transaminitis
#acute alcoholic hepatitis
#ascites
Diet Low Cholesterol,Low Fat
Activity As tolerated
Blood Work CBC, INR, liver profile in 2 weeks and 4 weeks -
- see slips in chart
Instructions:
Stand-Alone Forms:
Changes to Home Medications: Yes
Discharge Medications:
DC Medications w/original date entered in [employer]
calcium carbonate (Tums) 200 mg PO DAILYPRN PRN gerd 02/03/24
clonazepam 1 mg tablet 1 mg PO BID 02/03/24
levothyroxine 50 mcg tablet 50 mcg PO DAILY 02/03/24
prednisolone sodium phosphate 15 mg/5 mL (3 mg/mL) oral solution 40 mg (13.3333 mL) PO DAILY 25 days #333.333 mL 02/06/24
Home Medication Changes
prednisolone sodium phosphate 15 mg/5 mL (3 mg/mL) oral solution 40 mg (13.3333 mL) PO DAILY 25 days #333.333 mL 02/06/24
Pending Results: No
[2024-02-06 13:30] VITALS: BP 117/67
== END 2024-02-06 14:14 | disposition home or self-care (01) | DRG 433 ==
LOC: 4 WEST ACU 15:02
PROVIDERS: Internal Medicine Gastroenterology; Physician Assistant Medical; Radiology Diagnostic Radiology; ADMITTING PHYSICIAN Hospitalist; ATTENDING PHYSICIAN Internal Medicine; CONSULT PHYSICIAN Internal Medicine Gastroenterology; EMERGENCY PHYSICIAN Emergency Medicine; FAMILY PHYSICIAN Family Medicine
PROC: 0W9G3ZX Drainage of Peritoneal Cavity, Percutaneous Approach, Diagnostic (ICD-10-PCS; 2024-02-04)
DX: K70.11 Alcoholic hepatitis with ascites (principal); J90 Pleural effusion, not elsewhere classified; E87.6 Hypokalemia; F41.9 Anxiety disorder, unspecified; E03.9 Hypothyroidism, unspecified; F10.10 Alcohol abuse, uncomplicated
CPT/HCPCS: 88305; 49083; 71046; 74177; 80053; 80076; 80143; 81003; 81015; 82042; 82077; 82150; 82248; 82607; 82746; 83615; 83690; 84157; 84703; 85025; 85027; 85610; 85730; 86308; 86704; 86705; 86706; 86708; 86709; 86803; 87015; 87040; 87070; 87086; 87205; 87340; 87502; 87811; 88112; 89051; 99285; J0132; Q9967

== ENCOUNTER 2024-02-12 08:25 | Emergency (ER) | payer BC, SELFPAY ==
[2024-02-12 08:26] VITALS: BP 117/81
--- NOTE | 2024-02-12 08:51 | ED.GENMED ---
History of Present Illness
General
Chief Complaint: Swelling
Time Seen by Provider: 02/12/24 08:31
History of Present Illness
History of Present Illness:
38-year-old female with history of EtOH abuse presenting to the emergency department for increased swelling to her abdomen and her legs. Patient recently admitted to the hospital on 02/02 for painless jaundice, was found to be in acute hepatitis,
suspected from alcohol. Patient reports that she has been drinking for the past 3 weeks. She left the hospital on 02/06, status post paracentesis that was negative for SBP. Patient have not started on prednisone. Since leaving the hospital, has
had increased swelling to the abdomen and the lower extremities. Denies pain, notes some generalized discomfort from distention. Denies difficulty breathing or fever. Denies chest pain. Denies vomiting or changes in stool. Denies additional
acute medical complaints
Past History
Past History
ED Past Medical History: Psychiatric
ED Past Surgical History: None
Social History
Tobacco: Non-smoker
Alcohol: Daily
Drug: Marijuana
Personal: Single
Living: with family
Employment: Employed
Phy Exam
Physical Exam
Physical Exam:
General: Well-appearing, no clinical signs of dehydration, nontoxic and in no acute distress
HEENT: protecting airway, scleral icterus
Neck: appears supple
CV: Normal heart rate, regular rhythm, no evidence of cyanosis
Resp: No accessory muscle use, no increased work of breathing, lungs clear to auscultation bilaterally
Abd: Soft with mild distention and ascites. No tenderness
Extremities: No deformities, mild generalized swelling, no erythema, pulses and sensation intact
Neuro: alert, no focal neurologic deficit
: deferred
Rectal: deferred
Psych: Normal affect
Skin: Jaundice
Course
Orders/Labs/Results
Orders:
Orders
02/12/24 08:48
CR Chest - 2 Views Urgent
Comment:
Reason For Exam: ascites, swelling
02/12/24 08:53
Complete Blood Count/With Diff Urgent
Comprehensive Metabolic Panel Urgent
Lipase Urgent
PTT Urgent
Prothrombin Time Urgent
02/12/24 09:58
Consult Interventional Radiology [IRAD CONSULT] Urgent
Consulting Provider: Ulices Ayala
Was physician already notified: Yes
Reason for Consult/Procedure: paracentesis
Acknowledgement that appropriate orders are entered: Yes
02/12/24 10:25
Urinalysis Reflex To Culture Urgent
Date Specimen was Collected: 02/12/24
Time Specimen was Collected: 10:24
Urine Microscopic Reflex Cult Urgent
Urine Culture Urgent
STAN Source: U
Specimen Description:
Date Specimen was Collected: 02/12/24
Time Specimen was Collected: 10:24
02/12/24 11:49
Body Fluid Cell Count Routine
What is the Body Fluid: peritoneal
Date Specimen was Collected: 02/12/24
Time Specimen was Collected: 11:49
Abnormal Lab Results
02/12/24 02/12/24
08:53 10:25
WBC 15.2 H 10^3/uL
(4.8-10.8)
RBC 2.61 L 10^6/uL
(4.20-5.40)
Hgb 9.8 L g/dL
(12.0-16.0)
Hct 29.3 L %
(37.0-47.0)
MCV 112.3 H fL
(81.0-99.0)
MCH 37.5 H pg
(27.0-31.0)
RDW 17.5 H %
(11.5-14.5)
Abs Immat Gran (auto) 0.3 H 10^3/uL
(0-0.05)
Absolute Neuts (auto) 13.3 H 10^3/uL
(1.4-6.5)
Absolute Lymphs (auto) 0.8 L 10^3/uL
(1.2-3.4)
Absolute Monos (auto) 0.9 H 10^3/uL
(0.1-0.6)
Immature Gran % 1.7 H %
(0-0.5)
Neutrophils % 87.1 H %
(42.2-75.2)
Lymphocytes % 5.2 L %
(20.5-51.1)
PT 21.2 H Sec
(11.4-14.6)
Creatinine 0.4 L mg/dL
(0.6-1.0)
Glucose 112 H mg/dl
(70-99)
Total Bilirubin 13.3 H mg/dl
(0.2-1.3)
AST 490 H U/L
(14-36)
ALT 149 H U/L
(0-35)
Alkaline Phosphatase 180 H U/L
(38-126)
Total Protein 6.1 L g/dl
(6.3-8.2)
Albumin 3.4 L g/dl
(3.5-5.0)
Urine Bilirubin 2+ A
(Negative)
Urine Urobilinogen 3+ A
(Neg - 1+)
Leukocyte Esterase Rfl Trace A
(Negative)
Urine Bacteria (Reflex) Many A
(Negative)
02/12/24 08:53
02/12/24 08:53
Vital Signs
Initial and Last Documented VS:
Initial Vital Signs
Temp Pulse Resp BP Pulse Ox
98.4 F 92 18 117/81 98
02/12/24 08:26 02/12/24 08:26 02/12/24 08:26 02/12/24 08:26 02/12/24 08:26
Last Documented Vital Signs
Temp Pulse Resp BP Pulse Ox
98 F 80 16 116/73 97
02/12/24 10:54 02/12/24 11:29 02/12/24 11:29 02/12/24 11:29 02/12/24 10:54
MDM/Problems Addressed
MDM/Problems Addressed:
38-year-old female with history of alcohol abuse presenting for increased abdominal distention and lower extremity swelling, status post diagnosis of alcoholic hepatitis. Vital signs on arrival are normal.
On exam patient is well-appearing, no acute distress or discomfort. She is afebrile without any present pain or discomfort. No tenderness to the abdomen without concern for SBP. No acute respiratory distress, normal lung exam with lower suspicion
for significant pulmonary volume overload. Suspect abdominal distention lower extremity swelling from known alcoholic hepatitis, acute liver failure. Will screen with laboratory analysis and assess need for any paracentesis, therapeutic.
10:00 -patient's labs appear to be stable. Bilirubin downtrending, persistent transaminitis. Patient does have a leukocytosis, however again afebrile with no abdominal discomfort with lower suspicion for SBP. Chest x-ray without significant
interval change. Will consult with IR for potential therapeutic paracentesis
12:00 -patient had 1.6 L removed from her abdomen. Message sent to GI to establish more urgent follow-up, may need weekly or biweekly therapeutic paracentesis. Otherwise remained stable, feel stable for discharge with continued outpatient
supportive therapy and GI follow-up. Return precautions discussed.
*Critical Care Note
Total Time (30-74mins, 75-104mins- exclusive of procedures): Not Applicable
ED Attending Note
-
Portions of this chart may have been created with voice recognition software.� Occasional wrong word or��sound alike� substitutions may have occurred due to the inherent limitations of voice recognition software.
Discharge Plan
Departure
Prescriptions:
No Action
clonazepam 1 mg Tablet
1 mg PO BID
Rx Instructions:
02/12/24: filled #60 tablets/30 day supply on 01/28/24 at [facility] #[id number]
levothyroxine 50 mcg Tablet
50 mcg PO DAILY
Tums E-X 300 mg (750 mg) Tablet,Chewable
750 tab PO DAILYPRN PRN (Reason: GI symptoms/reflux )
prednisolone sodium phosphate 15 mg/5 mL (3 mg/mL) solution
40 mg PO DAILY
Rx Instructions:
02/06/24: prednisolone 40mg daily x 25 days
Referrals:
Patrick Meza DO [Family Provider] -
Interventions
Interventions:
*Risk Screen - Suicide Last Done: 02/12/24 08:26
*General Assessment Last Done: 02/12/24 08:26
*Neglect/Abuse Screening Last Done: 02/12/24 08:26
*ED COVID-19 Vaccine History Last Done: 02/12/24 08:26
ED- Cardiac Assessment Last Done: 02/12/24 08:35
ED- Pulmonary Assessment Last Done: 02/12/24 08:34
ED-Skin Assessment Last Done: 02/12/24 08:34
Discharge Date and Time
Print Language: INDONESIAN
[2024-02-12 09:08] LABS: % Basophils 0.1 % (0-2); % Eosinophils 0.3 % (0-6); % Immature Granulocytes 1.7 % (0-0.5); % Lymphocytes 5.2 % (20.5-51.1); % Monocytes 5.6 % (1.7-9.3); % Neutrophils 87.1 % (42.2-75.2); Absolute Eosinophils 0.1 10^3/uL (0-0.7); Absolute Immature Granulocytes 0.3 10^3/uL (0-0.05); Absolute Lymphocytes 0.8 10^3/uL (1.2-3.4); Absolute Monocytes 0.9 10^3/uL (0.1-0.6); Absolute Neutrophils 13.3 10^3/uL (1.4-6.5); Hematocrit 29.3 % (37.0-47.0); Hemoglobin 9.8 g/dL (12.0-16.0); Mean Corp Hgb Conc. 33.4 g/dL (33.0-37.0); Mean Corpuscular Hgb 37.5 pg (27.0-31.0); Mean Corpuscular Volume 112.3 fL (81.0-99.0); Mean Platelet Volume 10.3 fL (7.4-10.4); Nucleated Red Blood Cells % 0 %; Platelet Count 317 10^3/uL (130-400); Red Blood Cell Count 2.61 10^6/uL (4.20-5.40); Red Cell Dist. Width 17.5 % (11.5-14.5); White Blood Cell Count 15.2 10^3/uL (4.8-10.8)
[2024-02-12 09:16] LABS: INR 1.82; PT 21.2 Sec (11.4-14.6)
[2024-02-12 09:17] LABS: APTT 30.1 Sec (23.4-35.0)
[2024-02-12 09:19] LABS: ALT (SGPT) 149 U/L (0-35); AST (SGOT) 490 U/L (14-36); Albumin 3.4 g/dl (3.5-5.0); Alkaline Phosphatase 180 U/L (38-126); Blood Urea Nitrogen 17 mg/dl (7-17); Calcium 9.3 mg/dl (8.4-10.2); Carbon Dioxide 24 mmol/L (22-30); Chloride 101 mmol/L (98-107); Glucose 112 mg/dl (70-99); Lipase 107 U/L (23-300); Potassium 4.2 mmol/L (3.5-5.1); Sodium 135 mmol/L (135-145); Total Bilirubin 13.3 mg/dl (0.2-1.3); Total Protein 6.1 g/dl (6.3-8.2); eGFR > 60.00
[2024-02-12 10:25] VITALS: BP 113/67
[2024-02-12 10:46] LABS: Urine Albumin Negative (Neg - Trace); Urine Bilirubin 2+ (Negative); Urine Character Clear (Clear); Urine Glucose Negative (Negative); Urine Ketone Negative (Negative); Urine Leukocyte Trace (Negative); Urine Nitrite Negative (Negative); Urine Occult Blood Negative (Negative); Urine Specific Gravity 1.015 (<1.030); Urine Urobilinogen 3+ (Neg - 1+)
[2024-02-12 10:54] VITALS: BP 120/73; BP_SYST 83
[2024-02-12 10:57] LABS: Urine Color Yellow
[2024-02-12 11:16] LABS: Urine Squamous Cell >30 /LPF (Few)
[2024-02-12 11:17] LABS: Urine Amorphous Seen; Urine Granular Cast 0-2 /LPF (0); Urine Urothelial Cell 21-25 /LPF (FEW)
[2024-02-12 11:18] LABS: Urine Bacteria Many (Negative); Urine Red Blood Cell 0-2 /HPF (0-2); Urine White Cell 0-2 /HPF (0-5)
[2024-02-12 11:29] VITALS: BP 116/73
[2024-02-12 14:11] LABS: Body Fluid Mononuclear 88.5 %; Body Fluid Polymorphonuclear 11.5 %; Body Fluid WBC 305 /CUMM
[2024-02-12 14:15] LABS: Body Fluid Second Tech AMA
== END 2024-02-12 12:20 | disposition home or self-care (01) ==
LOC: EMR 08:25
PROVIDERS: CONSULT PHYSICIAN Radiology Vascular & Interventional Radiology; EMERGENCY PHYSICIAN Student in an Organized Health Care Education/Training Program; FAMILY PHYSICIAN Family Medicine
DX: K70.11 Alcoholic hepatitis with ascites (principal); F10.10 Alcohol abuse, uncomplicated
CPT/HCPCS: 99285; 49083; 71046; 80053; 81003; 81015; 83690; 85025; 85610; 85730; 87086; 89051

== ENCOUNTER 2024-02-18 11:05 | Emergency (ER) | payer BC, SELFPAY ==
[2024-02-18 11:39] VITALS: BP 115/71
--- NOTE | 2024-02-18 11:47 | ED.GENMED ---
ED Provider Triage
-
Patient seen by provider in Triage?: Seen in Triage
Attestation: A medical screening examination has been initiated by a qualified medical provider. Based on the assessment performed at this time, it has been determined that an emergent medical condition may exist and the patient has been informed
that further medical evaluation and possible additional diagnostic testing may be needed.
HPI: 38-year-old female with history of alcoholic hpresents for increasing abdominal distention, swelling of legs and feels that her ascites is worse.
Admitted 02/02 had 'just ove a liter' fluid drained
Had paracentesis 02/11 and drained 1.6 liters. Has had increasing abdominal swelling, swelling of both legs since. Denies fever/chills.
GENERAL: Alert , in no apparent distress
EYE: No visual abnormalities.
NECK: Trachea midline
ENT: No visible abnormalities.
LUNGS: No acute respiratory distress
NEUROLOGICAL: Alert and oriented
SKIN: Skin intact. No visible changes.
MUSCULOSKELETAL: Moving extremities normally
PSYCH: Normal and appropriate interaction.
This is a medical evaluation conducted in person to initiate diagnostic evaluation and provide initial therapeutics. Please see further documentation by the treating clinician. 38-year-old female with history of alcoholic cirrhosis, was here
History of Present Illness
General
Chief Complaint: Swelling
Source: patient
Exam Limitations: none
Time Seen by Provider: 02/18/24 13:03
Nursing documentation reviewed up to this point in time: agreed with
History of Present Illness
History of Present Illness:
38-year-old female with history of alcoholic hpresents for increasing abdominal distention, swelling of legs and feels that her ascites is worse.
Admitted 02/02 had 'just over a liter' fluid drained
Had paracentesis 02/11 and drained 1.6 liters. Has had increasing abdominal swelling, swelling of both legs since. Denies fever/chills. Denies any significant abdominal pain.
Past History
Past History
ED Past Medical History: Psychiatric
ED Past Surgical History: None
Social History
Tobacco: Non-smoker
Alcohol: Daily
Drug: Marijuana
Personal: Single
Living: with family
Employment: Employed
Review of Systems
Review of Systems
Allergies reviewed?: Yes
All Other Systems: ROS reviewed and negative except as documented in HPI and ROS
Constitutional: Denies fever or chills
Respiratory: Denies trouble breathing
Cardiac: Denies chest pain
ABD/GI: Reports abdominal pain (swelling no pain); Denies nausea, vomiting, diarrhea, constipated or anorexia
: Denies dysuria, frequency or difficulty voiding
Musculoskeletal: Reports edema (swelling both legs)
Skin: Reports no symptoms
Neurological: Reports no symptoms
Phy Exam
Physical Exam
Physical Exam:
GENERAL: No acute distress. A&Ox3.
CONSTITUTIONAL: Afebrile.
EYES: Clear, conjunctivae normal
ENMT: moist mucus membranes, Pharynx nl
RESPIRATORY: Regular respirations, nonlabored, lungs clear.
CARDIOVASCULAR: Regular rate and rhythm, no murmurs, no rubs.
GI: Soft, obese, soft,, normal BS
MUSCULOSKELETAL: Moves with ease. Well perfused. Legs +1-2 edema
SKIN: Warm, dry, pink
PSYCH: Normal mood and affect. Well kept, interactive and appropriate
NEUROLOGIC: Awake, alert and oriented. No focal neurological deficits
Course
Orders/Labs/Results
Orders:
Orders
02/18/24 11:50
Consult Interventional Radiology [IRAD CONSULT] Urgent
Consulting Provider: Inocente Sterling
Was physician already notified: Yes
Reason for Consult/Procedure: abdominal ascites
Acknowledgement that appropriate orders are entered: Yes
02/18/24 11:58
Ammonia Urgent
Complete Blood Count/With Diff Urgent
Comprehensive Metabolic Panel Urgent
Lipase Urgent
02/18/24 13:59
Body Fluid Cell Count Routine
What is the Body Fluid: Peritoneal fluid
Date Specimen was Collected: 02/18/24
Time Specimen was Collected: 13:45
Abnormal Lab Results
02/18/24
11:58
WBC 19.5 H 10^3/uL
(4.8-10.8)
RBC 2.57 L 10^6/uL
(4.20-5.40)
Hgb 9.5 L g/dL
(12.0-16.0)
Hct 27.8 L %
(37.0-47.0)
MCV 108.2 H fL
(81.0-99.0)
MCH 37.0 H pg
(27.0-31.0)
RDW 16.2 H %
(11.5-14.5)
Abs Immat Gran (auto) 0.3 H 10^3/uL
(0-0.05)
Absolute Neuts (auto) 17.8 H 10^3/uL
(1.4-6.5)
Absolute Lymphs (auto) 0.8 L 10^3/uL
(1.2-3.4)
Immature Gran % 1.4 H %
(0-0.5)
Neutrophils % 91.3 H %
(42.2-75.2)
Lymphocytes % 4.1 L %
(20.5-51.1)
Sodium 134 L mmol/L
(135-145)
Carbon Dioxide 21 L mmol/L
(22-30)
Creatinine 0.4 L mg/dL
(0.6-1.0)
Glucose 128 H mg/dl
(70-99)
Total Bilirubin 10.8 H mg/dl
(0.2-1.3)
AST 511 H* U/L
(14-36)
ALT 207 H U/L
(0-35)
Alkaline Phosphatase 163 H U/L
(38-126)
Ammonia 48 H umol/L
(9-30)
Total Protein 6.2 L g/dl
(6.3-8.2)
02/18/24 11:58
02/18/24 11:58
Vital Signs
Initial and Last Documented VS:
Initial Vital Signs
Temp Pulse Resp BP Pulse Ox
99.0 F 83 18 115/71 98
02/18/24 11:39 02/18/24 11:39 02/18/24 11:39 02/18/24 11:39 02/18/24 11:39
Last Documented Vital Signs
Temp Pulse Resp BP Pulse Ox
98.3 F 79 19 112/69 95
02/18/24 13:15 02/18/24 15:30 02/18/24 15:30 02/18/24 15:00 02/18/24 15:30
MDM/Problems Addressed
MDM/Problems Addressed:
38-year-old female with history of alcoholic hpresents for increasing abdominal distention, swelling of legs and feels that her ascites is worse.
Admitted 02/02 had 'just over a liter' fluid drained
Had paracentesis 02/11 and drained 1.6 liters. Has had increasing abdominal swelling, swelling of both legs since. Denies fever/chills. Denies any significant abdominal pain.
Afebrile, NAD
CBC: WBC 19.0 (pt taking seroids)
All other labs are at or slightly above her baseline.
Back from IR, 2000 ml drained. Pt stable for discharge
Spoke with GI Dr. Castro who states patient has an appointment tomorrow at 9:[address] Motta.
Patient is on prednisone which helps explain the elevated white blood cell count
Patient is afebrile, denies abdominal pain, is here simply for the increasing abdominal swelling and swelling in her legs.
Dr. Castro request that she continue prednisone,
Pt has appointment with Dr. Clinton tomorrow. s been taking steroids
*Critical Care Note
Total Time (30-74mins, 75-104mins- exclusive of procedures): Not Applicable
ED Attending Note
-
Portions of this chart may have been created with voice recognition software.� Occasional wrong word or��sound alike� substitutions may have occurred due to the inherent limitations of voice recognition software.
Discharge Plan
Departure
Patient Disposition: Home (Routine Discharge)
Date of Disposition: 02/18/24
Time of Disposition: 16:21
Patient with high blood pressure during this ER visit?: No
Condition: Fair
Discharge Problem:
Abdominal ascites
Prescriptions:
No Action
clonazepam 1 mg Tablet
1 mg PO BID
levothyroxine 50 mcg Tablet
50 mcg PO DAILY
Tums E-X 300 mg (750 mg) Tablet,Chewable
750 tab PO DAILYPRN PRN (Reason: GI symptoms/reflux )
prednisolone sodium phosphate 15 mg/5 mL (3 mg/mL) solution
40 mg PO DAILY
Referrals:
Patrick Meza DO [Family Provider] -
Gabriella Clinton MD [Active] -
Activity Restrictions/Additional Instructions:
As we discussed, keep your appointment with Dr. Clinton tomorrow.
Interventions
Interventions:
*Risk Screen - Suicide Last Done: 02/18/24 11:39
*General Assessment Last Done: 02/18/24 11:39
*Neglect/Abuse Screening Last Done: 02/18/24 11:39
ED- Fall Risk Assessment Last Done: 02/18/24 13:01
*ED COVID-19 Vaccine History Last Done: 02/18/24 13:01
*Nursing Disposition Last Done: 02/18/24 16:36
ED- Cardiac Assessment Last Done: 02/18/24 14:18
ED- Pulmonary Assessment Last Done: 02/18/24 13:11
ED-Skin Assessment Last Done: 02/18/24 13:11
Discharge Date and Time
Discharge Date/Time: 02/18/24 16:37
Print Language: ROMANIAN
[2024-02-18 12:17] LABS: % Basophils 0.1 % (0-2); % Eosinophils 0.3 % (0-6); % Immature Granulocytes 1.4 % (0-0.5); % Lymphocytes 4.1 % (20.5-51.1); % Monocytes 2.8 % (1.7-9.3); % Neutrophils 91.3 % (42.2-75.2); Absolute Eosinophils 0.1 10^3/uL (0-0.7); Absolute Immature Granulocytes 0.3 10^3/uL (0-0.05); Absolute Lymphocytes 0.8 10^3/uL (1.2-3.4); Absolute Monocytes 0.5 10^3/uL (0.1-0.6); Absolute Neutrophils 17.8 10^3/uL (1.4-6.5); Hematocrit 27.8 % (37.0-47.0); Hemoglobin 9.5 g/dL (12.0-16.0); Mean Corp Hgb Conc. 34.2 g/dL (33.0-37.0); Mean Corpuscular Volume 108.2 fL (81.0-99.0); Mean Platelet Volume 10.2 fL (7.4-10.4); Nucleated Red Blood Cells % 0 %; Platelet Count 301 10^3/uL (130-400); Red Blood Cell Count 2.57 10^6/uL (4.20-5.40); Red Cell Dist. Width 16.2 % (11.5-14.5); White Blood Cell Count 19.5 10^3/uL (4.8-10.8)
[2024-02-18 12:26] LABS: Ammonia 48 umol/L (9-30)
[2024-02-18 12:34] LABS: ALT (SGPT) 207 U/L (0-35); AST (SGOT) 511 U/L (14-36); Albumin 3.5 g/dl (3.5-5.0); Alkaline Phosphatase 163 U/L (38-126); Blood Urea Nitrogen 15 mg/dl (7-17); Calcium 9.2 mg/dl (8.4-10.2); Carbon Dioxide 21 mmol/L (22-30); Chloride 102 mmol/L (98-107); Glucose 128 mg/dl (70-99); Lipase 149 U/L (23-300); Potassium 4.4 mmol/L (3.5-5.1); Sodium 134 mmol/L (135-145); Total Bilirubin 10.8 mg/dl (0.2-1.3); Total Protein 6.2 g/dl (6.3-8.2); eGFR > 60.00
[2024-02-18 13:15] VITALS: BP 119/73; BP_SYST 80
[2024-02-18 13:56] VITALS: BP 121/74; BP_SYST 85
[2024-02-18 14:01] VITALS: BP 121/74
[2024-02-18 14:15] VITALS: BP 114/73
[2024-02-18 14:18] VITALS: BMI 32.7
[2024-02-18 14:57] LABS: Body Fluid Mononuclear 84.2 %; Body Fluid Polymorphonuclear 15.8 %; Body Fluid WBC 341 /CUMM
[2024-02-18 15:00] VITALS: BP 112/69
[2024-02-18 16:43] LABS: Body Fluid Second Tech DW
== END 2024-02-18 16:37 | disposition home or self-care (01) ==
LOC: EMR 11:05
PROVIDERS: Emergency Medicine; Registered Nurse; CONSULT PHYSICIAN Radiology Vascular & Interventional Radiology; EMERGENCY PHYSICIAN Emergency Medicine; FAMILY PHYSICIAN Family Medicine
DX: K70.31 Alcoholic cirrhosis of liver with ascites (principal)
CPT/HCPCS: 99283; 49083; 80053; 82140; 83690; 85025; 89051

== ENCOUNTER → 2024-02-26 07:13 | Outpatient (REF) | payer BC, SELFPAY ==
[2024-02-26 09:03] LABS: INR 1.68
[2024-02-26 09:04] LABS: % Basophils 0.2 % (0-2); % Immature Granulocytes 0.8 % (0-0.5); % Lymphocytes 8.1 % (20.5-51.1); % Monocytes 5.3 % (1.7-9.3); % Neutrophils 84.6 % (42.2-75.2); APTT 30.4 Sec (23.4-35.0); Absolute Eosinophils 0.1 10^3/uL (0-0.7); Absolute Immature Granulocytes 0.1 10^3/uL (0-0.05); Absolute Lymphocytes 1.2 10^3/uL (1.2-3.4); Absolute Monocytes 0.8 10^3/uL (0.1-0.6); Absolute Neutrophils 12.4 10^3/uL (1.4-6.5); Hemoglobin 10.4 g/dL (12.0-16.0); Mean Corp Hgb Conc. 33.5 g/dL (33.0-37.0); Mean Corpuscular Hgb 36.6 pg (27.0-31.0); Mean Corpuscular Volume 109.2 fL (81.0-99.0); Mean Platelet Volume 10.2 fL (7.4-10.4); Nucleated Red Blood Cells % 0 %; Platelet Count 209 10^3/uL (130-400); Red Blood Cell Count 2.84 10^6/uL (4.20-5.40); Red Cell Dist. Width 14.6 % (11.5-14.5); White Blood Cell Count 14.6 10^3/uL (4.8-10.8)
[2024-02-26 09:14] LABS: ALT (SGPT) 258 U/L (0-35); AST (SGOT) 409 U/L (14-36); Albumin 4.3 g/dl (3.5-5.0); Alkaline Phosphatase 178 U/L (38-126); Blood Urea Nitrogen 16 mg/dl (7-17); Calcium 10.1 mg/dl (8.4-10.2); Carbon Dioxide 26 mmol/L (22-30); Chloride 98 mmol/L (98-107); Direct Bilirubin 5.7 mg/dl (0.0-0.4); Glucose 91 mg/dl (70-99); Potassium 3.9 mmol/L (3.5-5.1); Sodium 135 mmol/L (135-145); Total Bilirubin 8.3 mg/dl (0.2-1.3); Total Protein 7.3 g/dl (6.3-8.2); eGFR > 60.00
== END ==
LOC: REG 07:13
PROVIDERS: ATTENDING PHYSICIAN Internal Medicine Gastroenterology
DX: K70.10 Alcoholic hepatitis without ascites (principal); K70.11 Alcoholic hepatitis with ascites
CPT/HCPCS: 36415; 80053; 82248; 85025; 85610; 85730

== ENCOUNTER → 2024-03-13 06:29 | Outpatient (REF) | payer BC, SELFPAY ==
[2024-03-13 07:14] LABS: % Eosinophils 2.5 % (0-6); % Immature Granulocytes 1.7 % (0-0.5); % Lymphocytes 23.5 % (20.5-51.1); % Monocytes 10.5 % (1.7-9.3); % Neutrophils 60.8 % (42.2-75.2); Absolute Basophils 0.1 10^3/uL (0-0.2); Absolute Eosinophils 0.2 10^3/uL (0-0.7); Absolute Immature Granulocytes 0.2 10^3/uL (0-0.05); Absolute Lymphocytes 2.1 10^3/uL (1.2-3.4); Absolute Monocytes 0.9 10^3/uL (0.1-0.6); Absolute Neutrophils 5.4 10^3/uL (1.4-6.5); Hematocrit 36.3 % (37.0-47.0); Hemoglobin 12.4 g/dL (12.0-16.0); Mean Corp Hgb Conc. 34.2 g/dL (33.0-37.0); Mean Corpuscular Volume 102.5 fL (81.0-99.0); Mean Platelet Volume 9.6 fL (7.4-10.4); Nucleated Red Blood Cells % 0 %; Platelet Count 205 10^3/uL (130-400); Red Blood Cell Count 3.54 10^6/uL (4.20-5.40); Red Cell Dist. Width 13.4 % (11.5-14.5); White Blood Cell Count 8.9 10^3/uL (4.8-10.8)
[2024-03-13 07:22] LABS: INR 1.44; PT 18.1 Sec (11.4-14.6)
[2024-03-13 07:40] LABS: ALT (SGPT) 152 U/L (0-35); AST (SGOT) 272 U/L (14-36); Albumin 4.5 g/dl (3.5-5.0); Alkaline Phosphatase 216 U/L (38-126); Blood Urea Nitrogen 18 mg/dl (7-17); Calcium 10.3 mg/dl (8.4-10.2); Carbon Dioxide 23 mmol/L (22-30); Chloride 97 mmol/L (98-107); Direct Bilirubin 2.7 mg/dl (0.0-0.4); Glucose 106 mg/dl (70-99); Magnesium 1.9 mg/dl (1.6-2.3); Potassium 4.5 mmol/L (3.5-5.1); Sodium 133 mmol/L (135-145); eGFR > 60.00
== END ==
LOC: REG 06:29
PROVIDERS: ATTENDING PHYSICIAN Internal Medicine Gastroenterology; FAMILY PHYSICIAN Family Medicine
DX: K70.11 Alcoholic hepatitis with ascites (principal); R25.2 Cramp and spasm
CPT/HCPCS: 36415; 80053; 82248; 83735; 85025; 85610

== ENCOUNTER → 2024-04-07 10:00 | Outpatient (REF) | payer BC, SELFPAY ==
[2024-04-07 11:46] LABS: % Basophils 1.1 % (0-2); % Eosinophils 4.1 % (0-6); % Immature Granulocytes 0.2 % (0-0.5); % Lymphocytes 39.3 % (20.5-51.1); % Monocytes 8.1 % (1.7-9.3); % Neutrophils 47.2 % (42.2-75.2); Absolute Basophils 0.1 10^3/uL (0-0.2); Absolute Eosinophils 0.2 10^3/uL (0-0.7); Absolute Lymphocytes 2.1 10^3/uL (1.2-3.4); Absolute Monocytes 0.4 10^3/uL (0.1-0.6); Absolute Neutrophils 2.6 10^3/uL (1.4-6.5); Hematocrit 34.9 % (37.0-47.0); Mean Corp Hgb Conc. 34.4 g/dL (33.0-37.0); Mean Corpuscular Hgb 33.1 pg (27.0-31.0); Mean Corpuscular Volume 96.4 fL (81.0-99.0); Mean Platelet Volume 9.9 fL (7.4-10.4); Nucleated Red Blood Cells % 0 %; Platelet Count 187 10^3/uL (130-400); Red Blood Cell Count 3.62 10^6/uL (4.20-5.40); Red Cell Dist. Width 11.9 % (11.5-14.5); White Blood Cell Count 5.4 10^3/uL (4.8-10.8)
[2024-04-07 12:02] LABS: INR 1.53; PT 18.7 Sec (11.4-14.6)
[2024-04-07 12:03] LABS: APTT 37.5 Sec (23.4-35.0)
[2024-04-07 12:25] LABS: ALT (SGPT) 44 U/L (0-35); AST (SGOT) 75 U/L (14-36); Albumin 4.8 g/dl (3.5-5.0); Alkaline Phosphatase 134 U/L (38-126); Blood Urea Nitrogen 12 mg/dl (7-17); Calcium 10.3 mg/dl (8.4-10.2); Carbon Dioxide 24 mmol/L (22-30); Chloride 100 mmol/L (98-107); Direct Bilirubin 1.8 mg/dl (0.0-0.4); Glucose 87 mg/dl (70-99); Potassium 4.3 mmol/L (3.5-5.1); Sodium 137 mmol/L (135-145); Total Protein 7.9 g/dl (6.3-8.2); eGFR > 60.00
[2024-04-07 14:09] LABS: Hepatitis B Surface Antibody Positive
[2024-04-09 13:33] LABS: AFP Male/Tumor Marker 4 ng/mL (0-9)
== END ==
LOC: RAD 10:00
PROVIDERS: ATTENDING PHYSICIAN Internal Medicine Gastroenterology; FAMILY PHYSICIAN Family Medicine; REFERRING PHYSICIAN Internal Medicine Transplant Hepatology
DX: K70.11 Alcoholic hepatitis with ascites (principal)
CPT/HCPCS: 36415; 76700; 80053; 82105; 82248; 85025; 85610; 85730; 86706

== ENCOUNTER 2024-04-18 09:05 | Emergency (ER) | payer BC, SELFPAY ==
[2024-04-18 09:08] VITALS: BP 110/76
[2024-04-18 09:41] LABS: COVID-19 Antigen Negative (Negative)
[2024-04-18 09:42] VITALS: BMI 28.7
--- NOTE | 2024-04-18 10:10 | ED.GENMED ---
History of Present Illness
General
Chief Complaint: Cold/Flu/URI Symptoms
Source: patient
Exam Limitations: none
Time Seen by Provider: 04/18/24 09:38
Nursing documentation reviewed up to this point in time: agreed with
History of Present Illness
History of Present Illness:
38-year-old female alcoholic cirrhosis, no longer drinking told not to use Tylenol or ibuprofen presents with bodyaches sore throat subjective fever painful swallowing sinus congestion possible stye over her left eye no abdominal pain eating and
drinking okay
Past History
Past History
ED Past Medical History: Psychiatric and Other (Cirrhosis)
ED Past Surgical History: None
Social History
Tobacco: Non-smoker
Alcohol: Former
Drug: Marijuana
Personal: Single
Living: with family
Employment: Employed
Review of Systems
Review of Systems
All Other Systems: Not applicable
Constitutional: Reports fever and fatigue
EENT: Reports sore throat, runny nose and other (Stye over the left eye, sore throat congestion)
Respiratory: Reports cough
Cardiac: Reports no symptoms
: Reports no symptoms
Musculoskeletal: Reports no symptoms
Skin: Reports no symptoms
Neurological: Reports headache
Endocrine: Reports no symptoms
Hematologic/Lymphatic: Reports no symptoms
Phy Exam
Physical Exam
Physical Exam:
Physical Exam
General: no apparent distress, not acutely ill
Neck: Posterior pharynx is red no exudates no trismus, left eye stye on the left upper lid stuffy nose
Heart: Regular
Lungs: no acute respiratory distress. clear bilaterally
Abdomen: Nontender
Neuro: alert and oriented. no focal neurological deficits
Skin: no rash
Psychiatric: well kept. interactive and cooperative
Extremities: no edema.
Course
Orders/Labs/Results
Orders:
Orders
04/18/24 09:14
COVID-19 Antigen Urgent
Source: Nasal Swab
Influenza A+B Rapid Molecular Urgent
STAN Source: Nasal Swab
Specimen Description:
04/18/24 10:00
Azithromycin [Zithromax] 500 mg PO NOW STA
Erythromycin (Ilotycin) [Erythromycin 0.5% Ophthalmic Ointment] See Dose Instructions OPHTH NOW STA
Prednisone [Deltasone] 30 mg PO NOW STA
Vital Signs
Initial and Last Documented VS:
Initial Vital Signs
Temp Pulse Resp BP Pulse Ox
98.2 F 82 16 110/76 100
04/18/24 09:08 04/18/24 09:08 04/18/24 09:08 04/18/24 09:08 04/18/24 09:08
Last Documented Vital Signs
Temp Pulse Resp BP Pulse Ox
98.2 F 82 16 110/76 100
04/18/24 09:08 04/18/24 09:08 04/18/24 09:08 04/18/24 09:08 04/18/24 09:08
MDM/Problems Addressed
Differential Diagnosis Includes:
Viral syndrome, sinusitis, pharyngitis, hordeolum or stye
MDM/Problems Addressed:
URI sore throat
Chronic conditions affecting care:
Alcoholic cirrhosis
Acute Exacerbation and/or Progression of Chronic Illness:
Alcoholic cirrhosis
*Pulse Oximetry
Patient hypoxic: no
*Critical Care Note
Total Time (30-74mins, 75-104mins- exclusive of procedures): Not Applicable
Update Note
Update Note:
Update, perhaps viral swabs negative will treat empirically with antibiotics and steroids no NSAIDs or Tylenol, warm compresses and erythromycin ointment
ED Attending Note
-
Portions of this chart may have been created with voice recognition software.� Occasional wrong word or��sound alike� substitutions may have occurred due to the inherent limitations of voice recognition software.
Discharge Plan
Departure
Patient Disposition: Home (Routine Discharge)
Date of Disposition: 04/18/24
Time of Disposition: 10:01
Patient with high blood pressure during this ER visit?: No
Condition: Good
Discharge Problem:
Sinusitis, Hordeolum externum (stye)
Instructions: Sinusitis in adults, Stye
Prescriptions:
New
azithromycin [Zithromax] 250 mg tablet
250 mg PO DAILY Qty: 4 0RF
methylprednisolone [Medrol (Bran)] 4 mg tablets,dose pack
See Rx Instructions .ROUTE .COMPLEX Qty: 21 0RF
Rx Instructions:
for 6 days
No Action
clonazepam 1 mg Tablet
1 mg PO BID
levothyroxine 50 mcg Tablet
50 mcg PO DAILY
Tums E-X 300 mg (750 mg) Tablet,Chewable
750 tab PO DAILYPRN PRN (Reason: GI symptoms/reflux )
prednisolone sodium phosphate 15 mg/5 mL (3 mg/mL) solution
40 mg PO DAILY
Referrals:
Patrick Meza DO [Family Provider] - Next open appointment
Activity Restrictions/Additional Instructions:
Medrol Dosepak starting tomorrow
Zithromax 2 to 50 mg a day starting tomorrow
Erythromycin ointment to your left eye daily
Use warm compresses over your left eye
Interventions
Interventions:
*Risk Screen - Suicide Last Done: 04/18/24 09:08
*General Assessment Last Done: 04/18/24 09:08
*Neglect/Abuse Screening Last Done: 04/18/24 09:08
ED- Pulmonary Assessment Last Done: 04/18/24 09:42
Discharge Date and Time
Print Language: BENGALI
[2024-04-18] MEDS: DELTASONE 30 MG PO (10:38)
[2024-04-18] MEDS: ZITHROMAX 500 MG PO (10:39)
[2024-04-18] MEDS: ERYTHROMYCIN 0.5% OPHTHALMIC OINTMENT 1 APPLIC OPHTH (10:40)
== END 2024-04-18 10:58 | disposition home or self-care (01) ==
LOC: EMR 09:05
PROVIDERS: Emergency Medicine; EMERGENCY PHYSICIAN Emergency Medicine; FAMILY PHYSICIAN Family Medicine
DX: J32.9 Chronic sinusitis, unspecified (principal); H00.016 Hordeolum externum left eye, unspecified eyelid; M79.10 Myalgia, unspecified site; R07.0 Pain in throat; R50.9 Fever, unspecified; K70.30 Alcoholic cirrhosis of liver without ascites
CPT/HCPCS: 99282; 87502; 87811

== ENCOUNTER 2024-05-01 06:32 | Day surgery (SDC) | payer BC, SELFPAY | END 2024-05-01 12:26 | disposition home or self-care (01) | LOC: GI 06:32 | PROVIDERS: ATTENDING PHYSICIAN Internal Medicine Gastroenterology | DX: K75.9 Inflammatory liver disease, unspecified (principal); K31.89 Other diseases of stomach and duodenum; I85.10 Secondary esophageal varices without bleeding; R11.2 Nausea with vomiting, unspecified | CPT/HCPCS: 43239; 88305; 88342 ==

== ENCOUNTER → 2024-05-22 07:25 | Outpatient (REF) | payer BC, SELFPAY ==
[2024-05-22 08:47] LABS: INR 1.37; PT 17.4 Sec (11.4-14.6)
[2024-05-22 08:48] LABS: APTT 35.3 Sec (23.4-35.0)
[2024-05-22 08:49] LABS: % Basophils 1.4 % (0-2); % Eosinophils 2.9 % (0-6); % Immature Granulocytes 0.2 % (0-0.5); % Monocytes 7.7 % (1.7-9.3); % Neutrophils 41.8 % (42.2-75.2); Absolute Basophils 0.1 10^3/uL (0-0.2); Absolute Eosinophils 0.1 10^3/uL (0-0.7); Absolute Lymphocytes 1.9 10^3/uL (1.2-3.4); Absolute Monocytes 0.3 10^3/uL (0.1-0.6); Absolute Neutrophils 1.7 10^3/uL (1.4-6.5); Hemoglobin 12.5 g/dL (12.0-16.0); Mean Corp Hgb Conc. 35.7 g/dL (33.0-37.0); Mean Corpuscular Hgb 32.4 pg (27.0-31.0); Mean Corpuscular Volume 90.7 fL (81.0-99.0); Mean Platelet Volume 9.6 fL (7.4-10.4); Nucleated Red Blood Cells % 0 %; Platelet Count 208 10^3/uL (130-400); Red Blood Cell Count 3.86 10^6/uL (4.20-5.40); Red Cell Dist. Width 11.8 % (11.5-14.5); White Blood Cell Count 4.2 10^3/uL (4.8-10.8)
[2024-05-22 09:00] LABS: Urine Albumin Negative (Neg - Trace); Urine Bilirubin Negative (Negative); Urine Character Clear (Clear); Urine Color Yellow; Urine Glucose Negative (Negative); Urine Ketone Negative (Negative); Urine Leukocyte Negative (Negative); Urine Nitrite Negative (Negative); Urine Occult Blood Negative (Negative); Urine Specific Gravity 1.015 (<1.030); Urine Urobilinogen 2+ (Neg - 1+)
[2024-05-22 09:11] LABS: ALT (SGPT) 19 U/L (0-35); AST (SGOT) 44 U/L (14-36); Albumin 4.3 g/dl (3.5-5.0); Alkaline Phosphatase 109 U/L (38-126); Blood Urea Nitrogen 9 mg/dl (7-17); Calcium 10.2 mg/dl (8.4-10.2); Carbon Dioxide 23 mmol/L (22-30); Chloride 103 mmol/L (98-107); Direct Bilirubin 0.7 mg/dl (0.0-0.4); Glucose 97 mg/dl (70-99); HDL Cholesterol 61 mg/dl; LDL Cholesterol, Calculated 155 mg/dl; Potassium 4.3 mmol/L (3.5-5.1); Sodium 136 mmol/L (135-145); Total Bilirubin 2.5 mg/dl (0.2-1.3); Total Cholesterol 237 mg/dl (50-199); Total Protein 6.8 g/dl (6.3-8.2); Triglyceride 105 mg/dl (10-149); Very Low Density Lipoprotein 21 mg/dl (0-30); eGFR > 60.00
[2024-05-22 09:39] LABS: TSH 1.14 uIU/ml (0.47-4.68)
[2024-05-22 11:46] LABS: Vitamin D, 25-OH*** 19.6 ng/mL (30-80)
[2024-05-22 18:29] LABS: AFP Male/Tumor Marker 5.58 ng/ml
[2024-05-22 18:46] LABS: Hepatitis B Surface Antibody Positive
[2024-05-23 09:47] LABS: Amphetamine, Urine Negative ng/mL (Cutoff 300); Barbiturates, Urine Negative ng/mL (Cutoff 200); Benzodiazepines, Urine Negative ng/mL (Cutoff 200); Buprenorphine, Urine Negative ng/mL (Cutoff 5); Carisoprodol, Urine Negative ng/mL (Cutoff 100); Cocaine, Urine Negative ng/mL (Cutoff 150); Creatinine, Urine 108.8 mg/dL (20.0-400.0); Ethyl Glucuronide, Urine Negative ng/mL (Cutoff 500); Fentanyl, Urine Negative ng/mL (Cutoff 1); Marijuana, Urine PresumptivePOS ng/mL (Cutoff 50); Meperidine, Urine Negative ng/mL (Cutoff 200); Methadone, Urine Negative ng/mL (Cutoff 150); Opiates, Urine Negative ng/mL (Cutoff 300); Oxycodone/Oxymorphone, Urine Negative ng/mL (Cutoff 100); PCP (Phencyclidine), Urine Negative ng/mL (Cutoff 25); Propoxyphene, Urine Negative ng/mL (Cutoff 300); Tapentadol, Urine Negative ng/mL (Cutoff 200); Tramadol, Urine Negative ng/mL (Cutoff 100); Zolpidem, Urine Negative ng/mL (Cutoff 20)
[2024-05-25 09:24] LABS: 11-Nor-9-Carboxy THC, Urine 37 ng/mL
== END ==
LOC: REG 07:25
PROVIDERS: ATTENDING PHYSICIAN Internal Medicine Gastroenterology; FAMILY PHYSICIAN Family Medicine; REFERRING PHYSICIAN Internal Medicine Transplant Hepatology
DX: K70.11 Alcoholic hepatitis with ascites (principal); E03.9 Hypothyroidism, unspecified; E55.9 Vitamin D deficiency, unspecified; Z79.899 Other long term (current) drug therapy; Z00.00 Encounter for general adult medical examination without abnormal findings
CPT/HCPCS: 36415; 80053; 80061; 80307; 80349; 81003; 82105; 82248; 82306; 84443; 85025; 85610; 85730; 86706

== ENCOUNTER → 2024-07-23 16:36 | Outpatient (REF) | payer BC, SELFPAY ==
[2024-07-23 17:56] LABS: % Basophils 0.8 % (0-2); % Eosinophils 2.9 % (0-6); % Immature Granulocytes 0.2 % (0-0.5); % Lymphocytes 44.1 % (20.5-51.1); % Monocytes 5.7 % (1.7-9.3); % Neutrophils 46.3 % (42.2-75.2); Absolute Basophils 0.1 10^3/uL (0-0.2); Absolute Eosinophils 0.2 10^3/uL (0-0.7); Absolute Lymphocytes 2.8 10^3/uL (1.2-3.4); Absolute Monocytes 0.4 10^3/uL (0.1-0.6); Absolute Neutrophils 2.9 10^3/uL (1.4-6.5); Hematocrit 36.7 % (37.0-47.0); Hemoglobin 12.7 g/dL (12.0-16.0); Mean Corp Hgb Conc. 34.6 g/dL (33.0-37.0); Mean Corpuscular Volume 89.5 fL (81.0-99.0); Mean Platelet Volume 9.7 fL (7.4-10.4); Nucleated Red Blood Cells % 0 %; Platelet Count 208 10^3/uL (130-400); Red Cell Dist. Width 11.8 % (11.5-14.5); White Blood Cell Count 6.3 10^3/uL (4.8-10.8)
[2024-07-23 18:04] LABS: INR 1.27; PT 16.4 Sec (11.4-14.6)
[2024-07-23 18:09] LABS: ALT (SGPT) 29 U/L (0-35); AST (SGOT) 42 U/L (14-36); Albumin 4.7 g/dl (3.5-5.0); Alkaline Phosphatase 109 U/L (38-126); Blood Urea Nitrogen 9 mg/dl (7-17); Calcium 10.3 mg/dl (8.4-10.2); Carbon Dioxide 23 mmol/L (22-30); Chloride 105 mmol/L (98-107); Direct Bilirubin 0.5 mg/dl (0.0-0.4); Glucose 85 mg/dl (70-99); Potassium 4.2 mmol/L (3.5-5.1); Sodium 139 mmol/L (135-145); Total Bilirubin 3.5 mg/dl (0.2-1.3); Total Protein 7.6 g/dl (6.3-8.2); eGFR > 60.00
[2024-07-24 18:22] LABS: AFP Male/Tumor Marker 3.17 ng/ml
[2024-07-24 19:35] LABS: Hepatitis B Surface Antibody Indeterminate
== END ==
LOC: REG 16:36
PROVIDERS: ATTENDING PHYSICIAN Internal Medicine Gastroenterology; FAMILY PHYSICIAN Internal Medicine Transplant Hepatology
DX: K70.11 Alcoholic hepatitis with ascites (principal)
CPT/HCPCS: 36415; 80053; 82105; 82248; 85025; 85610; 86706

== ENCOUNTER → 2024-11-25 07:06 | Outpatient (REF) | payer BC, SELFPAY ==
[2024-11-25 09:10] LABS: INR 1.17; PT 15.2 Sec (11.4-14.6)
[2024-11-25 09:11] LABS: APTT 30.4 Sec (23.4-35.0)
[2024-11-25 09:23] LABS: Hematocrit 35.1 % (37.0-47.0); Hemoglobin 11.8 g/dL (12.0-16.0); Mean Corp Hgb Conc. 33.6 g/dL (33.0-37.0); Mean Corpuscular Volume 87.8 fL (81.0-99.0); Nucleated Red Blood Cells % 0 %; Platelet Count 201 10^3/uL (130-400); Red Cell Dist. Width 11.9 % (11.5-14.5)
[2024-11-25 09:45] LABS: ALT (SGPT) 27 U/L (0-35); AST (SGOT) 36 U/L (14-36); Albumin 4.6 g/dl (3.5-5.0); Alkaline Phosphatase 136 U/L (38-126); Blood Urea Nitrogen 11 mg/dl (7-17); Calcium 9.7 mg/dl (8.4-10.2); Carbon Dioxide 25 mmol/L (22-30); Chloride 106 mmol/L (98-107); Glucose 94 mg/dl (70-99); HDL Cholesterol 80 mg/dl; LDL Cholesterol, Calculated 114 mg/dl; Potassium 4.7 mmol/L (3.5-5.1); Sodium 138 mmol/L (135-145); Total Protein 7.3 g/dl (6.3-8.2); Very Low Density Lipoprotein 18 mg/dl (0-30); eGFR > 60.00
[2024-11-25 10:11] LABS: Vitamin D, 25-OH*** 32.7 ng/mL (30-80)
[2024-11-25 11:37] LABS: AFP Male/Tumor Marker 2.01 ng/ml
== END ==
LOC: REG 07:06
PROVIDERS: ATTENDING PHYSICIAN Internal Medicine Gastroenterology; FAMILY PHYSICIAN Family Medicine; OTHER PHYSICIAN Internal Medicine; OTHER PHYSICIAN Internal Medicine Transplant Hepatology
DX: K70.11 Alcoholic hepatitis with ascites (principal); E55.9 Vitamin D deficiency, unspecified; E03.9 Hypothyroidism, unspecified; E78.2 Mixed hyperlipidemia
CPT/HCPCS: 36415; 80053; 80061; 82105; 82248; 82306; 84439; 84443; 85025; 85610; 85730